=== PATIENT | female | born 1960 | race Caucasian/White ===

== ENCOUNTER 2021-05-19 21:04 | Emergency (ER) | payer MEDICAID, SELFPAY ==
--- NOTE | ~2021-05-19 | CT_ITS ---
EXAMINATION: CT ABDOMEN AND PELVIS WITH CONTRAST CLINICAL INFORMATION: Abdominal pain COMPARISON: None TECHNIQUE: Multidetector volumetric images were obtained from the superior aspect of the liver through the pubic symphysis following administration 85 mL of Omnipaque 350 intravenous contrast. Sagittal and coronal reformatted images were obtained on the technologist's workstation. Oral contrast: No This CT examination was performed using dose optimization techniques as appropriate, variously including the following: *Automated exposure control *Adjustment of mA and/or kV according to patient size (this includes techniques or standardized protocols for targeted exams where dose is matched to indication/reason for exam; i.e. extremities or head) *Use of iterative reconstruction technique DLP: 418 mGy-cm FINDINGS: LUNG BASES: The visualized lung bases are unremarkable. LIVER, GALLBLADDER, AND BILIARY TREE: The liver is normal in size, shape, and attenuation. There are multiple hypodense liver lesions likely simple cysts. No intrahepatic ductal dilatation seen.. The gallbladder has been surgically removed. The CBD is slightly prominent an expected findings post cholecystectomy. It measures 9 mm PANCREAS: Unremarkable. SPLEEN: Unremarkable. ADRENAL GLANDS: Unremarkable. KIDNEYS AND URETERS: The kidneys are normal in size, shape, and attenuation. No hydronephrosis, hydroureter, or calculi seen. No perinephric stranding. BLADDER: Unremarkable. GASTROINTESTINAL TRACT: There is scattered moderate stool and gas seen throughout the colon without significant distention. There are fluid-filled small bowel loops in the pelvis without distention. Appendix is not visualized. There is no inflammatory process in the abdomen. ABDOMINAL WALL: No significant hernia is appreciated. LYMPH NODES: Normal. VASCULAR: Unremarkable. PELVIC VISCERA: There is no free air or free fluid. The uterus is retroverted. OSSEOUS STRUCTURES: There is endplate sclerosis L2-L3 disc level. No lytic or sclerotic process seen. CT/CT abdomen pelvis w con IMPRESSION: Nonspecific fluid-filled distal small bowel loops. Moderate constipation without signs of obstruction. Appendix is not seen. Gallbladder has been surgically removed with mild prominence of common bile duct and expected findings. Multiple liver cysts. No acute intra-abdominal process seen. Fleischner guidelines were followed.
[2021-05-19 21:12] VITALS: BP 132/79; PULSE 95; O2SAT 100
[2021-05-19 21:14] VITALS: BP 133/72; PULSE 105; RESP 18; TEMP 37.3; O2SAT 100; BMI 28.3
--- NOTE | 2021-05-19 21:25 | ED.ABDPAIN ---
HPI - Abdominal Pain General Chief Complaint: Abdominal Pain Stated Complaint: n/v/abd pain Time Seen by Provider: 05/19/21 21:23 History of Present Illness HPI narrative: Patient is 60 years old presents today with having abdominal pain. Abrupt in onset epigastric area similar to previous bouts of gastric ulcers. Positive. History of ovarian surgery. The abdominal pain is extreme. Patient cannot describe the pain. She is not vaccinated for COVID. She denies any coughing congestion upper respiratory symptoms. No changes in smell or taste. No changes in bowel movement. No diarrhea. No bloody stool. Patient from home. Related Data Previous Rx's Medication Instructions Recorded pantoprazole 40 mg tablet,delayed 40 mg PO DAILY #14 tab 05/19/21 release (Protonix) Allergies Allergy/AdvReac Type Severity Reaction Status Date / Time aspirin [ASA] Allergy Intermediate FRY Unverified 01/18/20 17:06 STOMACH ibuprofen Allergy Unknown Verified 02/24/18 00:00 Review of Systems Review of Systems No coughing or congestion or upper respiratory symptoms no diaphoresis positive abdominal pain Yes all other systems are reviewed and are negative Physical Exam Vital Signs: Vital Signs: Last Vital Signs Temp 99.2 F 05/19/21 21:14 Pulse 96 05/19/21 22:00 Resp 16 05/19/21 22:00 BP 119/68 05/19/21 22:00 Pulse Ox 94 05/19/21 22:00 BMI result Body Mass Index 28.3 Appearance: Alert. Oriented X3. No acute distress. Eyes: Pupils equal, round and reactive to light. ENT: Pharynx normal. Neck: Normal inspection. Neck supple. No lymph nodes noted. No crepitus CVS: Normal heart rate and rhythm. Pulses normal. Normal S1 and S2 Respiratory: No respiratory distress. Breath sounds normal. No Wheezing. No rales Abdomen: Soft and nontender. No rigidity. No distention. good BS x4 Skin: Skin warm and dry. Normal skin color. Normal skin turgor. Extremities: No lower extremity edema. Neurovascular intact to all extremities. No Lacerations. No Rash Neuro: Oriented X 3. No motor deficit. No sensory deficit. Moving all extermities. No slurred speech MDM - Abdominal Pain MDM Narrative Medical decision making narrative: CT scan of the abdomen grossly negative for any acute evidence of obstruction, abscess, perforation. Patient given Dilaudid for pain. Question colitis. Patient's LFTs are normal lipase normal no evidence for liver or pancreatic disease. She is in stable condition. Patient had increased respiratory rate not vaccinated for COVID. A COVID test was done was positive. Patient told to stay home isolation until all symptoms has resolved. She is in stable condition. Her O2 sat on room air was normal( greater than 95% on ra Medical Records Attestation: I reviewed the patient's medical records. Lab Data Attestation: I reviewed the patient's lab results. Result diagrams: 05/19/21 21:35 05/19/21 21:35 Labs: Lab Results 05/19/21 05/19/21 05/19/21 Range/Units 21:35 21:35 21:35 WBC 5.6 (4.8-10.8) X10*3/uL RBC 4.46 (4.20-5.50) X10*6/uL Hgb 12.9 (12.0-16.0) g/dl Hct 38.3 (37.0-47.0) % MCV 85.9 (80.0-98.0) fL MCH 28.9 (27.0-33.0) pg MCHC 33.7 (31.0-35.0) g/dl RDW 12.3 (11.0-16.0) % Plt Count 215 (160-400) X10*3/uL MPV 9.5 (9.4-12.3) fL Immature Gran % (Auto) 0.5 H (0.0-0.4) % Neut % (Auto) 85.5 H (45-73) % Lymph % (Auto) 2.7 L (20-40) % [place] % (Auto) 10.4 (2-11) % Eos % (Auto) 0.7 (0-4) % Baso % (Auto) 0.2 (0-2) % Lymph # (Auto) 0.2 L (1.2-4.9) X10*3/uL [place] # (Auto) 0.6 (0.1-1.2) X10*3/uL Eos # (Auto) 0.0 (0.0-0.4) X10*3/uL Baso # (Auto) 0.0 (0.0-0.2) X10*3/uL Abs Immat Gran (auto) 0.03 (0.00-0.03) X10*3/uL Absolute Neuts (auto) 4.8 (2.0-8.3) x10*3/uL Absolute Nucleated RBC 0.000 (0.0-0.012) X10*3/uL Nucleated RBC % (auto) 0.0 (0.0-0.2) /100WBC Sodium 140 (135-145) mmol/L Potassium 4.4 (3.3-5.1) mmol/L Chloride 106 (96-108) mmol/L Carbon Dioxide 21 L (22-29) mmol/L Anion Gap 17 (12-20) BUN 7 L (9-16) mg/dL Creatinine 0.82 (0.5-1.4) mg/dL Estim Creat Clear Calc 61.7 Estimated GFR > 60 Random Glucose 88 (60-115) mg/dL Calcium 9.2 (8.4-10.2) mg/dL Total Bilirubin 0.5 (0.0-1.0) mg/dL AST 18 (5-31) U/L ALT 11 (0-31) U/L Alkaline Phosphatase 52 (39-117) U/L Total Protein 7.0 (6.5-8.0) g/dL Albumin 4.1 (3.5-5.0) g/dL Lipase 57 (8-78) U/L Influenza Type A (PCR) NEGATIVE (Negative) Influenza Type B (PCR) NEGATIVE (Negative) RSV RNA Qual (PCR) NEGATIVE (Negative) SARS-CoV-2 RNA (RT-PCR) POSITIVE A (Negative) Discharge Plan Discharge Clinical Impression: COVID-19, Gastritis Patient Disposition: Home, Self-Care Instructions: Covid-19 Viral Syndrome and Novel Coronavirus (ED) Hey/Ath, Gastritis (ED), COVID-19 (Coronavirus Disease 2019) (ED) Prescriptions: New pantoprazole [Protonix] 40 mg tablet,delayed release (DR/EC) 40 mg PO DAILY Qty: 14 RF: 0 Referrals: Hyacinth Dudley MD [Primary Care Provider] - 2 days (Home isolation into all symptom has resolved for least 2 days. Please stay home isolation for at least 1 week.) Print Language: Malay [facility] Past Medical History Attestation statement: The following information was validated with the patient. Social History Social History Advance Directives: No Advance Directives Information Provided: No Patient : Yes
[2021-05-19 21:42] LABS: MANUAL DIFF FLAG NO
[2021-05-19 21:43] LABS: Basophils Percent Auto 0.2 % (0-2); Eosinophils Percent Auto 0.7 % (0-4); Hematocrit 38.3 % (37.0-47.0); Hemoglobin 12.9 g/dl (12.0-16.0); Imm Gran Abs Auto 0.03 X10*3/uL (0.00-0.03); Imm Gran Pct Auto 0.5 % (0.0-0.4); Lymphocytes Absolute Auto 0.2 X10*3/uL (1.2-4.9); Lymphocytes Percent Auto 2.7 % (20-40); Mean Corpuscular HGB Conc 33.7 g/dl (31.0-35.0); Mean Corpuscular Hemoglobin 28.9 pg (27.0-33.0); Mean Corpuscular Volume 85.9 fL (80.0-98.0); Mean Platelet Volume 9.5 fL (9.4-12.3); Monocytes Absolute Auto 0.6 X10*3/uL (0.1-1.2); Monocytes Percent Auto 10.4 % (2-11); Neutrophils Absolute Auto 4.8 x10*3/uL (2.0-8.3); Neutrophils Percent Auto 85.5 % (45-73); Platelet Count 215 X10*3/uL (160-400); Red Blood Count 4.46 X10*6/uL (4.20-5.50); Red Cell Distribution Width 12.3 % (11.0-16.0); White Blood Count 5.6 X10*3/uL (4.8-10.8)
[2021-05-19 21:54] VITALS: RESP 20
[2021-05-19] MEDS: Ondansetron ODT 4 MG TAB.RAPDIS SUBLINGUAL (21:54)
[2021-05-19] MEDS: HYDROmorphone HCl 1 MG/ML SYRINGE IVPUSH (21:54)
[2021-05-19] MEDS: 0.9 % Sodium Chloride 1,000 ML 999 ML IV (21:54)
[2021-05-19] MEDS: Magnesium Hydrox/Alum Hydrox 30 ML ORAL.SUSP PO (21:55)
[2021-05-19 21:57] VITALS: BP 132/83; PULSE 92; RESP 20; O2SAT 100
[2021-05-19 22:00] VITALS: BP 119/68; PULSE 96; RESP 16; O2SAT 94
[2021-05-19 22:02] LABS: Alanine Aminotransferase 11 U/L (0-31); Albumin Level 4.1 g/dL (3.5-5.0); Alkaline Phosphatase 52 U/L (39-117); Anion Gap 17 (12-20); Aspartate Amino Transferase 18 U/L (5-31); Bilirubin Total 0.5 mg/dL (0.0-1.0); Blood Urea Nitrogen 7 mg/dL (9-16); Calcium 9.2 mg/dL (8.4-10.2); Carbon Dioxide 21 mmol/L (22-29); Chloride 106 mmol/L (96-108); Creatinine Clr Calc Pharmacy 61.7; Estimated Glomerular Filt Rate > 60; Glucose Random 88 mg/dL (60-115); Lipase 57 U/L (8-78); Potassium 4.4 mmol/L (3.3-5.1); Sodium 140 mmol/L (135-145)
[2021-05-19 22:19] LABS: Influenza A PCR NEGATIVE (Negative); Influenza B PCR NEGATIVE (Negative); Resp Syncy Virus RNA Qual PCR NEGATIVE (Negative); SARS COV2 PCR INHOUSE POSITIVE (Negative)
[2021-05-19] MEDS: iohexoL 350 MG/ML 100 ML INFUS..BTL IV (22:50)
[2021-05-19 23:57] VITALS: BP 104/56; PULSE 83; RESP 14; O2SAT 100
[2021-05-20] VITALS: BP 102/65; PULSE 82; RESP 14; O2SAT 97
[2021-05-20 00:10] VITALS: BP 102/65; PULSE 82; RESP 14
--- NOTE | 2021-05-20 00:17 | PC.NURSE ---
pt ride home call [phone]
[2021-05-20 00:28] VITALS: BP 114/63; PULSE 86; RESP 16; O2SAT 99
== END 2021-05-20 00:34 | disposition home or self-care (01) ==
PROVIDERS: Emergency Provider Emergency Medicine Emergency Medical Services; PCP Internal Medicine
DX: U07.1 COVID-19 (principal); K29.70 Gastritis, unspecified, without bleeding; R10.13 Epigastric pain
CPT/HCPCS: 0241U; 36415; 74177; 80053; 83690; 85025; 96361; 96374; 99284; J1170; Q9967

== ENCOUNTER 2022-01-08 03:05 | Emergency (ER) | payer MEDICAID, SELFPAY ==
[2022-01-08 03:11] VITALS: BP 120/84; BP 140/90; PULSE 64; RESP 16; TEMP 36.9; O2SAT 97; O2SAT 98; BMI 21.2
--- NOTE | 2022-01-08 04:19 | ED_ITS ---
HPI - Alcohol General Chief Complaint: ETOH/Substance Use Stated Complaint: ETOH/CRISIS Time Seen by Provider: 01/08/22 04:19 Source: patient Mode of arrival: EMS Limitations: no limitations History of Present Illness HPI narrative: Patient took 2 beer and 2 500 mg Tylenol tablet and called ambulance as she wants attention from her son and her daughter would not care about her patient denies any suicidal ideation or significant depression patient does have a counselor she regular talks to Related Data Previous Rx's Medication Instructions Recorded pantoprazole 40 mg tablet,delayed 40 mg PO DAILY #14 tabs 05/19/21 release (Protonix) Allergies Allergy/AdvReac Type Severity Reaction Status Date / Time aspirin [ASA] Allergy Intermediate FRY Unverified 01/18/20 17:06 STOMACH ibuprofen Allergy Unknown Verified 02/24/18 00:00 Review of Systems Review of Systems: Yes all other systems are reviewed and are negative [facility] Social History Social History Advance Directives: No Advance Directives Information Provided: Yes Physical Exam ED Vital Signs: Vital Signs - 24 hr 01/08/22 03:11 01/08/22 05:10 Temperature 98.4 F 97.8 F Pulse Rate 64 74 Respiratory Rate 16 16 Blood Pressure 140/90 H 96/58 L Pulse Oximetry 98 98 Oxygen Delivery Method Room Air Room Air BMI result Body Mass Index 21.2 Appearance: Alert. Oriented X3. No acute distress. Eyes: PERRLA, No Nystagmus ENT: Pharynx normal. Oral Mucosa moist Neck: Normal inspection. Neck supple. CVS: Normal heart rate and rhythm. Pulses normal. Respiratory: No respiratory distress. Equal air entry bilateral, no wheezing/rales/rhonchi Abdomen: Soft and nontender. Bowel sounds are present, no mass palpable, no CVA tenderness Skin: Skin warm and dry. Normal skin color. Normal skin turgor. Extremities: No lower extremity edema. No calf tenderness psych: Normal mentation mood stable no SI/HI no delusions or hallucinations Neuro: Oriented X 3. No motor deficit. No sensory deficit.No cerebellar signs , cranial nerves II-XII intact MDM - Alcohol MDM Narrative Medical decision making narrative: Patient with attention seeking behavior, medically cleared will discharge patient home patient denies any suicidal ideation Discharge Plan Discharge Clinical Impression: Alcoholic intoxication, Mood disorder Patient Disposition: Home, Self-Care Instructions: Mood Disorders (ED), Abuse of Alcohol (ED) Additional Instructions: Do not drink alcohol or take medication without prescription Follow-up with your PCP/therapy Prescriptions: No Action pantoprazole [Protonix] 40 mg tablet,delayed release (DR/EC) 40 mg PO DAILY Qty: 14 0RF
[2022-01-08 05:10] VITALS: BP 96/58; PULSE 74; RESP 16; TEMP 36.6; O2SAT 98
[2022-01-08] MEDS: hydrOXYzine HCL 25 MG TABLET PO (05:35)
== END 2022-01-08 06:07 | disposition home or self-care (01) ==
PROVIDERS: Emergency Provider Internal Medicine
DX: F10.129 Alcohol abuse with intoxication, unspecified (principal); F39 Unspecified mood [affective] disorder; Y90.9 Presence of alcohol in blood, level not specified; Z79.899 Other long term (current) drug therapy
CPT/HCPCS: 99283; 99284

== ENCOUNTER → 2022-09-15 11:05 | Outpatient (BNVA) | payer MEDICAID, SELFPAY | PROVIDERS: PCP Internal Medicine; Referring Provider Internal Medicine; Visit Provider Internal Medicine | DX: I45.10 Unspecified right bundle-branch block (principal); R55 Syncope and collapse | CPT/HCPCS: 93005; 99202 ==

== ENCOUNTER → 2022-10-16 11:09 | Outpatient (REF) | payer MEDICAID, SELFPAY ==
--- NOTE | 2022-10-16 11:15 | CA_ITS ---
Transthoracic Echocardiogram Patient (Last, First, Middle): Geno Stone, Gender: Female Date of : 1960 Age: 61 Procedure Date: 10/16/2022 Procedure Type: Transthoracic Echocardiogram Location: OP Height: 154.94 cm Weight: 62.6 kg BSA: 1.61 m2 Heart Rate: bpm BP: 112 / 70 mmHg Pulper Operator: TO Referring MD: Davidson Mccormick MD Financial Associate: Kennedy Tran MD Symptoms: R55 - Syncope and collapse Study Quality: Adequate ECG Rhythm: Sinus Conclusions: - Normal study Findings Left Ventricle Normal left ventricular size, thickness, and systolic function. The visually estimated ejection fraction is between 65-70%. Spectral Doppler is indicative of a normal filling pattern. Peak GLS is -23%, normal. Right Ventricle Normal right ventricular cavity size and systolic function. Atria Both atria are normal in size. There is no evidence of interatrial shunt. Aortic Valve Normal aortic valve structure and function. There is no aortic valve stenosis. There is no aortic valve regurgitation. Mitral Valve Normal mitral valve structure and function. There is trace mitral valve regurgitation. There is no mitral valve stenosis. Pulmonic Valve The pulmonic valve is likely normal. Tricuspid Valve Normal tricuspid valve structure. There is trace tricuspid valve regurgitation. The right ventricular systolic pressure is normal. The right ventricular systolic pressure is 32 mmHg. Normal right atrial pressure. There is no evidence of pulmonary hypertension. Great Vessels All visible segments of the aorta are normal in size. The pulmonary artery was not well visualized. Venous The inferior vena cava is normal in size and collapses greater than 50% with inspiration. Pericardium/Pleural There is no evidence of pericardial effusion. Prior Study Comparison No prior study available for comparison. Measurements 2D Linear Measurements IVSd: 1.03 0.6-0.9/0.6-1.0 cm LVIDd: 4.50 3.9-5.3/4.2-5.9 cm LVIDd Index: 2.80 2.4-3.2/2.2-3.1 cm/m2 LVIDs: 2.85 2.0-3.6 cm LVPWd: 0.77 0.7-1.1 cm LA Diam: 3.20 2.7-3.8/3.0-4.0 cm LAIDs Index: 1.99 1.5-2.3 cm/m2 LV Mass: 164.78 67-162/88-224 g LV Mass Index: 102.35 43-95/49-115 g/m2 LVOT Diam: 2.10 3.0+(-)1.3 cm 2D Systolic Function EF 4C: 67.90 >55% EF 2C: 67.20 >55% EF BiP: 65.70 >55% Mitral Valve MV Pk E: 0.82 MV PK A: 0.74 MV Decel Time: 251.00 E/A: 1.10 E'Lateral: 13.10 E'Medial: 9.79 E/E' Med: 8.40 E/E' Lat: 6.20 PHT: 73.00 MVA PHT: 3.01 Decel Wirt: 3.26 Aortic Valve AoV Pk Broderick: 1.48 AoV Mn Broderick: 1.03 AoV VTI: 0.32 AoV Pk Grad: 9.00 Aov Mn Grad: 5.00 RADHA Cont.VTI: 2.08 LVOT LVOT Pk Broderick: 0.78 LVOT Mn Broderick: 0.57 LVOT VTI: 0.20 LVOT Pk Grad: 2.00 LVOT Mn Grad: 1.00 LVOT Diam: 2.10 LVOT Area: 3.46 Diastolic Function MV Pk E: 0.82 MV Pk A: 0.74 E/A: 1.10 E'Medial: 9.79 E/E' Med: 8.40 E' Laterial: 13.10 E/E' Lat: 6.20 Right Ventricle TAPSE (mm): 28.70 TVS' Broderick: 12.70 Tricuspid Valve TR Pk Broderick: 2.69 TR Pk Grad: 29.00 RA Press: 3.00 RVSP: 32.00 Great Vessels Aorta Sinus of Valsalva: 3.16 2.0-3.[address] Ridge: 2.55 1.7-3.4 cm Ao Asc: 3.20 2.1-3.4 cm Updated in Other Vendor System with Status of Final Kennedy Tran MD electronically signed on 10/17/2022 1:45:05 PM with status of Final
--- NOTE | 2022-10-16 11:15 | HM_ITS ---
Cardiac event monitor Indication: Syncope and collapse Technique: Patient was hooked up to cardiac event monitor on 10/16/2022 for total of 30 days with compliance rate of 62% Findings: Baseline was normal sinus rhythm with minimal heart rate 50 beats per minute and maximum heart rate 138 beats per minute. There were no significant pauses or AV block noted. Rare PVCs noted. Patient marked events 6 times on monitor but without any current pounding symptoms correlated with sinus rhythm. Conclusion: 1. Baseline normal sinus rhythm without significant pauses 2. No significant arrhythmias noted 3. Patient reported events without corresponding symptoms correlating with sinus rhythm MTDD
== END ==
LOC: HO.CARD 11:09
PROVIDERS: PCP Internal Medicine; Visit Provider Internal Medicine
DX: I45.10 Unspecified right bundle-branch block (principal); R55 Syncope and collapse
CPT/HCPCS: 93270; 93306; 93356

== ENCOUNTER → 2022-10-16 11:15 | Outpatient (BNV) | payer MEDICAID, SELFPAY | PROVIDERS: PCP Internal Medicine; Visit Provider Internal Medicine Cardiovascular Disease | DX: R55 Syncope and collapse (principal) | CPT/HCPCS: 93272; 93306 ==

== ENCOUNTER 2022-12-29 14:19 | Outpatient (AMB) | payer MEDICAID, SELFPAY ==
[2022-12-29 14:29] VITALS: BP 112/74; PULSE 79; BMI 25.6
--- NOTE | 2022-12-29 14:29 | A.OFFVIS_ITS ---
Intake Vital Signs 12/29/22 14:29 Height 5 ft 2 in Weight 139 lb 12.369 oz BMI 25.6 BP 112/74 Blood Pressure Location Lt brachial Position Sitting Pulse 79 Pulse Source Pulse Oximeter Intake Visit Reasons: follow up after testing Intake Note: Follow up after testing. Md Physician Dermatologist Required: No Accompanied by: Self / Same As Patient Allergies aspirin [ASA] Allergy (Intermediate, Verified 12/29/22 14:30) FRY STOMACH ibuprofen Allergy (Unknown, Verified 12/29/22 14:30) unknown HPI follow up after testing HPI Details Gricelda is a 62-year-old female with no prior known cardiac history who recently had a syncopal event. Her EKG showed a right bundle branch block and she was referred to Cardiology for evaluation. She recently underwent an echocardiogram and cardiac event monitor and now presents for follow-up. Today she reports she has been doing well with no recurrent syncopal events. She describes her event to me: She was in a restaurant waiting for a food order and she became hot, vision was blurry and she had a brief syncopal event. She was feeling weak afterwards but felt better when she was brought out side in the fresh air. She denies having episodes like this in the past. No chest discomfort at rest or with activity. No shortness of breath, palpitations, presyncope, PND, orthopnea or edema. She is not on any routine medications. She does report issues with anxiety at times. [facility] Surgical History No pertinent past surgical history Family History Mother Heart problem Father Emphysema lung Social History Alcohol intake: current Alcohol intake frequency: a few times a month Patient Tobacco Use Status: Former Tobacco user Review of Systems Const Details: Reports anxiety issues, heart palpitations All systems reviewed & are unremarkable except as noted in HPI and below Denies weakness ENT Denies dizziness Card Denies chest pain, Denies chest pain with activity, Denies syncope, Denies rapid heart rate, Denies pedal edema, Denies edema, Denies leg edema, Denies lightheadedness, Denies palpitations, Denies dyspnea, Denies dyspnea on exertion and Denies orthopnea Resp Denies cough, Denies dyspnea and Denies dyspnea on exertion GI Denies hematochezia and Denies change in stool character Musc Denies abnormal gait, Denies muscle cramps, Denies muscle weakness, Denies numbness, Denies radiating pain into limb and Denies tingling Neuro Denies abnormal gait, Denies dizziness, Denies syncope, Denies numbness, Denies tingling and Denies weakness Endo Denies palpitations Physical Exam Vital Signs: Last Vital Signs Pulse 79 12/29/22 14:29 BP 112/74 12/29/22 14:29 BMI result Body Mass Index 25.6 Const General: cooperative, healthy appearing, comfortable and no acute distress Orientation/consciousness: patient oriented x3 Neck Neck: Yes normal visual inspection Resp Effort & Inspection: normal respiratory effort Auscultation: clear to auscultation bilaterally, no crackles, no rales, no rhonchi and no wheezes Cardio Jugular venous distension: no JVD Rate: regular rate Rhythm: regular rhythm Heart sounds: S1 normal heart sound present, S2 normal heart sound present, no murmurs and no rubs Neuro General: patient oriented x3 Extrem General: Yes normal to inspection Psych Appearance: grossly normal Mental Status: mental status grossly normal Speech and movement: Normal speech and movement present Assessment & Plan Assessment & Plan (1) Syncope: Code(s): R55 - Syncope and collapse Plan: Syncopal event which when describes sounds like vasovagal syncope. No recurrent episodes since then. No prior syncope in the past. EKG done 09/15/2022 shows sinus rhythm with right bundle branch block. Echocardiogram done 10/16/2022 shows normal study, EF 65-70%. A cardiac event monitor was done on 10/16/2022 for 30 days showing sinus rhythm with heart rate range 50 to 138, no significant pauses or AV blocks noted, rare PVCs. Symptoms of pounding heart correlated with normal sinus rhythm. Test results reviewed with her. No further cardiac testing needed at this time. Instructed on good hydration, recognizes symptoms of syncope and then sitting/laying down. ED care if needed for recurrent symptoms. Cardiology follow-up 6 months, sooner if needed (2) RBBB: Code(s): I45.10 - Unspecified right bundle-branch block Plan: Finding a right bundle branch block on EKG. No anginal sounding symptoms. Echocardiogram normal. Coding Level of Care Code Est Pt Level 3 (27429) Diagnoses Syncope R55 RBBB I45.10 Time Spent (min) 24 Comment Chart review, documentation, interview, assessment
== END 2022-12-29 14:59 | disposition home or self-care (01) ==
PROVIDERS: PCP Internal Medicine; Referring Provider Internal Medicine; Visit Provider Nurse Practitioner Family
DX: R55 Syncope and collapse (principal); I45.10 Unspecified right bundle-branch block
CPT/HCPCS: 99213

== ENCOUNTER → 2022-12-29 14:19 | Outpatient (BNVA) | payer MEDICAID, SELFPAY | PROVIDERS: PCP Internal Medicine; Referring Provider Internal Medicine; Visit Provider Nurse Practitioner Family | DX: R55 Syncope and collapse (principal); I45.10 Unspecified right bundle-branch block | CPT/HCPCS: 99212; 99213 ==

== ENCOUNTER 2023-02-15 16:46 | Outpatient (REF) | payer MEDICAID, SELFPAY ==
--- NOTE | ~2023-02-15 | XR_ITS ---
EXAMINATION: XR LUMBOSACRAL SPINE CLINICAL INFORMATION: Right-sided lower back pain radiating to right lower leg. COMPARISON: None available. TECHNIQUE: Three views of the lumbosacral spine. FINDINGS: There is mild levoscoliosis. Lumbar lordosis is maintained. Loss of the L2-L3, L4-L5 and L5-S1 disc heights is seen. No visible acute fracture or dislocation seen. There is mild endplate sclerosis at the L2-L3 disc level. No aggressive lytic or sclerotic process seen. SI joints are symmetrical. The soft tissues are normal. XR/XR lumbar spine 2-3V IMPRESSION: Mild degenerative disc changes at the L2-L3, L4-L5 and L5-S1 disc levels. No visible acute fracture, dislocation or lytic process seen. Mild levoscoliosis. Recommend MRI to evaluate neural foraminal narrowing and noted impingement on the right side secondary to scoliosis.
== END 2023-02-15 16:47 | disposition home or self-care (01) ==
LOC: HO.XRAY 16:46
PROVIDERS: PCP Internal Medicine; Visit Provider Internal Medicine
DX: M54.50 Low back pain, unspecified (principal); M79.604 Pain in right leg
CPT/HCPCS: 72100

== ENCOUNTER 2023-03-15 21:38 | Emergency (ER) | payer MEDICAID, SELFPAY ==
--- NOTE | ~2023-03-15 | XR_ITS ---
EXAMINATION: XR CHEST CLINICAL INFORMATION: Shortness of breath COMPARISON: 07/06/2018 TECHNIQUE: 2 views of the chest were obtained. FINDINGS: No significant abnormality is noted involving the heart, lungs, mediastinum, bony thorax or soft tissues. Degenerative changes are present in the spine. Surgical clips are seen in the gallbladder fossa. XR/XR chest 2V IMPRESSION: No acute intrathoracic disease.
--- NOTE | 2023-03-15 21:41 | ECG_ITS ---
Test Reason : chest pain Blood Pressure : / mmHG Vent. Rate : 086 BPM Atrial Rate : 086 BPM P-R Int : 156 ms QRS Dur : 126 ms QT Int : 402 ms P-R-T Axes : 056 -06 042 degrees QTc Int : 481 ms Normal sinus rhythm Right bundle branch block Abnormal ECG When compared with ECG of 30-JUN-2018 09:00, Right bundle branch block is now Present Referred By: Generic ED Physician Electronically Signed By:PEE JACKSON MD
[2023-03-15 21:42] VITALS: BP 115/73; PULSE 92; RESP 18; TEMP 36.6; O2SAT 99; BMI 28.0
[2023-03-15 22:19] LABS: MANUAL DIFF FLAG NO
[2023-03-15 22:20] LABS: Basophils Percent Auto 0.3 % (0-2); Eosinophils Absolute Auto 0.6 X10*3/uL (0.0-0.4); Eosinophils Percent Auto 6.7 % (0-4); Hemoglobin 13.4 g/dl (12.0-16.0); Imm Gran Abs Auto 0.01 X10*3/uL (0.00-0.03); Imm Gran Pct Auto 0.1 % (0.0-0.4); Lymphocytes Absolute Auto 2.5 X10*3/uL (1.2-4.9); Lymphocytes Percent Auto 28.2 % (20-40); Mean Corpuscular HGB Conc 33.5 g/dl (31.0-35.0); Mean Corpuscular Hemoglobin 29.9 pg (27.0-33.0); Mean Corpuscular Volume 89.3 fL (80.0-98.0); Mean Platelet Volume 9.3 fL (9.4-12.3); Monocytes Absolute Auto 0.8 X10*3/uL (0.1-1.2); Monocytes Percent Auto 9.7 % (2-11); Neutrophils Absolute Auto 4.8 x10*3/uL (2.0-8.3); Platelet Count 308 X10*3/uL (160-400); Red Blood Count 4.48 X10*6/uL (4.20-5.50); Red Cell Distribution Width 12.3 % (11.0-16.0); White Blood Count 8.7 X10*3/uL (4.8-10.8)
[2023-03-15 22:33] LABS: Anion Gap 13 (12-20); Blood Urea Nitrogen 14 mg/dL (9-16); Calcium 9.2 mg/dL (8.4-10.2); Carbon Dioxide 26 mmol/L (22-29); Chloride 107 mmol/L (96-108); Creatinine Clr Calc Pharmacy 61.1; Estimated Glomerular Filt Rate > 60; Glucose Random 94 mg/dL (60-115); Potassium 3.7 mmol/L (3.3-5.1); Sodium 142 mmol/L (135-145)
[2023-03-15 22:35] VITALS: BP 118/78; PULSE 73; RESP 12; O2SAT 99
[2023-03-15 22:38] LABS: COVID-19 Test Negative (Negative); IDNOW Serial# BCCEAD1C
[2023-03-15 22:39] LABS: IDNOW Serial# 08D9AD1C; Influenza A Negative (Negative); Influenza B2 Negative (Negative)
[2023-03-15 22:43] LABS: Troponin-I High Sensitivity < 2.7 ng/L (<3.5-17.0)
[2023-03-15] MEDS: Ketorolac Tromethamine 60 MG/2 ML VIAL IM (22:50)
--- NOTE | 2023-03-15 23:55 | ED_ITS ---
HPI - Chest Pain General Chief Complaint: Chest Pain Stated Complaint: chest pain, SOB Time Seen by Provider: 03/15/23 22:25 Source: patient Mode of arrival: ambulatory Limitations: no limitations History of Present Illness HPI narrative: Patient comes to the emergency room complaining of right and left-sided chest pain for about 2 weeks. Patient states that approximately 2 weeks ago, patient had a mechanical fall, landed on her chest. Since then, patient has been having localized pain. Patient denies any difficulty breathing, but states it hurts to breathe. Patient denies hitting her head or losing consciousness, patient denies being on blood thinners. Related Data Previous Rx's Medication Instructions Recorded ketorolac 10 mg tablet 10 mg PO .B.i.d. PRN pain #7 tabs 03/16/23 Allergies Allergy/AdvReac Type Severity Reaction Status Date / Time aspirin [ASA] Allergy Intermediate FRY Verified 12/29/22 14:30 STOMACH ibuprofen Allergy Unknown unknown Verified 12/29/22 14:30 Review of Systems 2 Review of Systems: Constitutional : No Weight loss, No Fever, No Chills, No Night Sweats, No Fatigue, No Malaise ENT/Mouth : No Hearing loss, No Ear Pain, No Nasal Congestion, No Sinus Pain, No Hoarseness, No sore throat, No Rhinorrhea, No Swallowing Difficulty Eyes: No Eye Pain, No Swelling, No Redness, No Foreign Body, No Discharge, No Vision Changes Cardiovascular : Complaining of continues chest pain, worse with sleeping on the left side or rolling in bed, No SOB, No Dyspnea on Exertion, No Orthopnea, No Edema, No Palpitations Respiratory : No Cough, No Sputum, No Wheezing, No Smoke Exposure, No Dyspnea Gastrointestinal : No Nausea, No Vomiting, No Diarrhea, No Constipation, No abdominal Pain, No Hematochezia, No Melena Genitourinary : no irregular bleeding, No Dysuria, No Urinary Frequency, No Hematuria, No Urinary Incontinence, No Urgency, No Flank Pain, No Urinary Flow Changes, No Hesitancy Musculoskeletal : No joint pain, No Myalgias, No Joint Swelling Skin : No Skin Lesions, No rash Neuro : No Weakness, No Numbness, No Paresthesias, No Loss of Consciousness, No Dizziness, No Headache Psych : No Anxiety/Panic, No Depression, No SI/HI/AH/VH, No Social Issues, Heme/Lymph: No Bruising, No Bleeding,No Lymphadenopathy Endocrine : No Polyuria, No Polydipsia, No Temperature Intolerance [facility] Past Medical History Surgical History No pertinent past surgical history Family History Family History Mother Heart problem Father Emphysema lung Social History Social History Alcohol intake: current Alcohol intake frequency: a few times a month Patient Tobacco Use Status: Former Tobacco user Advance Directives: No Advance Directives Information Provided: No Physical Exam 2 Vital Signs: Vital Signs: Last Vital Signs Temp 97.8 F 03/15/23 21:42 Pulse 73 03/15/23 22:35 Resp 12 03/15/23 22:35 BP 118/78 03/15/23 22:35 Pulse Ox 99 03/15/23 22:35 O2 Del Method Room Air 03/15/23 22:35 BMI result Body Mass Index 28.0 Const: Other: Appearance: Alert. Oriented X3. No acute distress. Eyes: Pupils equal, round and reactive to light. ENT: Pharynx normal. Neck: Normal inspection. Neck supple. No lymph nodes noted. No crepitus CVS: Normal heart rate and rhythm. Pulses normal. Normal S1 and S2. Patient has reproducible chest pain on palpation on the right and left. Respiratory: No respiratory distress. Breath sounds normal. No Wheezing. No rales Abdomen: Soft and nontender. No rigidity. No distention. Skin: Skin warm and dry. Normal skin color. Normal skin turgor. Extremities: No lower extremity edema. No Lacerations. No Rash Neuro: Oriented X 3. No motor deficit. No sensory deficit. Moving all extremities. No slurred speech. CN 2 through 12 grossly intact Psych: calm, cooperative, normal affect Medications Administered Discontinued Medications Generic Name Dose Route Start Last Admin Trade Name Freq PRN Reason Stop Dose Admin Ketorolac Tromethamine 60 mg 03/15/23 22:33 03/15/23 22:50 Ketorolac Tromethamine 60 Mg/2 Ml Vial IM 03/15/23 22:34 60 mg ONCE ONE Administration Medical Decision Making Medical Decision Making MDM Narrative: -my interpretation of chest x-ray: No fracture ribs, no pneumonia -my interpretation of labs: Normal hematology, unremarkable chemistry and troponin is negative -patient's score for Wells criteria for pulmonary embolism is 0 -patient was giving a dose of IM ketorolac, patient states then heard chest feels much better but now her arm is hurting at the injection site Differential Diagnosis Differential Diagnoses: The differential diagnosis associated with the presentation includes (Pneumonia, contusion, rib fracture) Lab Data [facility] Lab Attestation statement: I reviewed the patient's lab results. 03/15/23 22:11 03/15/23 22:11 Labs: Lab Results 03/15/23 Range/Units 22:11 WBC 8.7 (4.8-10.8) X10*3/uL RBC 4.48 (4.20-5.50) X10*6/uL Hgb 13.4 (12.0-16.0) g/dl Hct 40.0 (37.0-47.0) % MCV 89.3 (80.0-98.0) fL MCH 29.9 (27.0-33.0) pg MCHC 33.5 (31.0-35.0) g/dl RDW 12.3 (11.0-16.0) % Plt Count 308 D (160-400) X10*3/uL MPV 9.3 L (9.4-12.3) fL Immature Gran % (Auto) 0.1 (0.0-0.4) % Neut % (Auto) 55.0 (45-73) % Lymph % (Auto) 28.2 (20-40) % [place] % (Auto) 9.7 (2-11) % Eos % (Auto) 6.7 H (0-4) % Baso % (Auto) 0.3 (0-2) % Lymph # (Auto) 2.5 (1.2-4.9) X10*3/uL [place] # (Auto) 0.8 (0.1-1.2) X10*3/uL Eos # (Auto) 0.6 H (0.0-0.4) X10*3/uL Baso # (Auto) 0.0 (0.0-0.2) X10*3/uL Abs Immat Gran (auto) 0.01 (0.00-0.03) X10*3/uL Absolute Neuts (auto) 4.8 (2.0-8.3) x10*3/uL Absolute Nucleated RBC 0.000 (0.0-0.012) X10*3/uL Nucleated RBC % (auto) 0.0 (0.0-0.2) /100WBC Sodium 142 (135-145) mmol/L Potassium 3.7 (3.3-5.1) mmol/L Chloride 107 (96-108) mmol/L Carbon Dioxide 26 (22-29) mmol/L Anion Gap 13 (12-20) BUN 14 (9-16) mg/dL Creatinine 0.77 (0.5-1.4) mg/dL Estim Creat Clear Calc 61.1 Estimated GFR > 60 Random Glucose 94 (60-115) mg/dL Calcium 9.2 (8.4-10.2) mg/dL Troponin I High Sens < 2.7 (<3.5-17.0) ng/L COVID-19 (ALLY) Negative (Negative) COVID-19 Clin Com See Note Influenza Type A (MADAY) Negative (Negative) Influenza Type B (MADAY) Negative (Negative) Influenza A & B Note See Note Independent Interpretation I performed an independent interpretation of an: EKG (My interpretation of EKG: Normal sinus rhythm, heart rate 86, right bundle branch block, not suspicious for STEMI, QTC 481) and Plain X-Ray Radiology Impression Discussion of test interpretation with radiology: I have reviewed the radiologist's reading. Radiologist Impression: FINDINGS: No significant abnormality is noted involving the heart, lungs, mediastinum, bony thorax or soft tissues. Degenerative changes are present in the spine. Surgical clips are seen in the gallbladder fossa. XR/XR chest 2V IMPRESSION: No acute intrathoracic disease. Discharge Plan Discharge Clinical Impression: Costochondritis Patient Disposition: Home, Self-Care Instructions: Costochondritis (ED) Additional Instructions: Please follow-up with your primary care physician tomorrow. If you have any worsening or new symptoms, please return to the emergency room or call 911 Prescriptions: New ketorolac 10 mg tablet 10 mg PO .B.i.d. PRN (Reason: pain) Qty: 7 0RF Rx Instructions: Do not take this medication with NSAIDs/aspirin/ibuprofen Interventions: ED Discharge Assessment Last Done: 03/16/23 00:53 Discharge Date/Time: 03/16/23 00:56
[2023-03-16 00:10] VITALS: PULSE 54
== END 2023-03-16 00:56 | disposition home or self-care (01) ==
PROVIDERS: Emergency Provider Emergency Medicine
DX: M94.0 Chondrocostal junction syndrome [Tietze] (principal); R07.9 Chest pain, unspecified; R06.02 Shortness of breath; Z11.52 Encounter for screening for COVID-19
CPT/HCPCS: 36415; 71046; 80048; 84484; 85025; 87502; 87635; 93005; 96372; 99284; 99285; J1885

== ENCOUNTER 2023-03-24 22:03 | Emergency (ER) | payer MEDICAID, SELFPAY ==
--- NOTE | 2023-03-24 | ECG_ITS ---
Test Reason : chest pain Blood Pressure : / mmHG Vent. Rate : 071 BPM Atrial Rate : 071 BPM P-R Int : 160 ms QRS Dur : 120 ms QT Int : 410 ms P-R-T Axes : 024 -07 040 degrees QTc Int : 445 ms Normal sinus rhythm Right bundle branch block Abnormal ECG When compared with ECG of 15-MAR-2023 21:46, No significant change was found Referred By: Generic ED Physician Electronically Signed By:PEE JACKSON MD
--- NOTE | ~2023-03-24 | CT_ITS ---
EXAMINATION: CT CHEST WITHOUT CONTRAST CLINICAL INFORMATION: Sternal pain after fall COMPARISON: 01/15/2014 TECHNIQUE: Multidetector volumetric CT imaging of the chest was done. Axial MIP volume rendering provided. Sagittal and coronal reformatted images were obtained. This CT examination was performed using dose optimization techniques as appropriate, variously including the following: *Automated exposure control *Adjustment of mA and/or kV according to patient size (this includes techniques or standardized protocols for targeted exams where dose is matched to indication/reason for exam; i.e. extremities or head) *Use of iterative reconstruction technique DLP: 202 mGy-cm FINDINGS: LUNGS: Mild biapical scarring. Subsegmental atelectasis in the bilateral lower lobes. MEDIASTINUM: The visualized thyroid gland is unremarkable. Small hiatal hernia. There are subcentimeter mediastinal lymph nodes within the range of normal variation. Cardiac size is within normal limits; no pericardial effusion. CORONARY ARTERY CALCIFICATION: None visualized on this study. PLEURA: No pneumothorax or pleural effusion. AXILLA: No lymphadenopathy. UPPER ABDOMEN: Several scattered hypoattenuating lesions in the liver favor cysts. OSSEOUS STRUCTURES: There is a nondisplaced fracture of the upper sternal body. Multilevel degenerative changes in the spine. CT/CT chest wo IV con IMPRESSION: Nondisplaced fracture of the upper sternal body.
--- NOTE | ~2023-03-24 | XR_ITS ---
EXAMINATION: XR CHEST CLINICAL INFORMATION: Chest pain COMPARISON: 03/15/2023 TECHNIQUE: Frontal view of the chest was obtained. FINDINGS: The lungs are clear with no focal consolidation. No evidence of pneumothorax, pulmonary edema, or pleural effusions. The cardiomediastinal silhouette is unremarkable. No acute osseous findings. XR/XR chest 1V IMPRESSION: No acute cardiopulmonary findings.
[2023-03-24 22:11] VITALS: BMI 28.3
[2023-03-24 22:18] VITALS: BP 160/86; PULSE 77; RESP 18; TEMP 36.8; O2SAT 98
[2023-03-24 22:21] LABS: MANUAL DIFF FLAG NO
[2023-03-24 22:23] LABS: Basophils Percent Auto 0.5 % (0-2); Eosinophils Percent Auto 11.7 % (0-4); Hematocrit 38.9 % (37.0-47.0); Hemoglobin 13.2 g/dl (12.0-16.0); Imm Gran Abs Auto 0.02 X10*3/uL (0.00-0.03); Imm Gran Pct Auto 0.2 % (0.0-0.4); Lymphocytes Percent Auto 24.3 % (20-40); Mean Corpuscular HGB Conc 33.9 g/dl (31.0-35.0); Mean Corpuscular Hemoglobin 30.2 pg (27.0-33.0); Mean Platelet Volume 9.5 fL (9.4-12.3); Monocytes Absolute Auto 0.7 X10*3/uL (0.1-1.2); Monocytes Percent Auto 8.6 % (2-11); Neutrophils Absolute Auto 4.6 x10*3/uL (2.0-8.3); Neutrophils Percent Auto 54.7 % (45-73); Platelet Count 283 X10*3/uL (160-400); Red Blood Count 4.37 X10*6/uL (4.20-5.50); Red Cell Distribution Width 12.4 % (11.0-16.0); White Blood Count 8.4 X10*3/uL (4.8-10.8)
[2023-03-24 22:37] VITALS: PULSE 69
[2023-03-24 22:38] LABS: Alanine Aminotransferase 9 U/L (0-31); Albumin Level 3.9 g/dL (3.5-5.0); Alkaline Phosphatase 76 U/L (39-117); Anion Gap 9 (12-20); Aspartate Amino Transferase 15 U/L (5-31); Bilirubin Total 0.2 mg/dL (0.0-1.0); Blood Urea Nitrogen 16 mg/dL (9-16); Calcium 9.5 mg/dL (8.4-10.2); Carbon Dioxide 26 mmol/L (22-29); Chloride 109 mmol/L (96-108); Estimated Glomerular Filt Rate > 60; Glucose Random 97 mg/dL (60-115); Potassium 4.2 mmol/L (3.3-5.1); Sodium 140 mmol/L (135-145); Total Protein 6.8 g/dL (6.5-8.0)
[2023-03-24 22:47] LABS: Troponin-I High Sensitivity < 2.7 ng/L (<3.5-17.0)
--- NOTE | 2023-03-24 22:51 | ED_ITS ---
HPI - Chest Pain General Chief Complaint: Chest Pain Stated Complaint: chest pain Time Seen by Provider: 03/24/23 22:51 Source: patient Mode of arrival: ambulatory Limitations: no limitations History of Present Illness HPI narrative: Patient complaining of pain in the sternum on the right side of the chest for last 3 weeks was seen here on 03/15 for the pain which is going on at that time for 2 weeks ago when she had a mechanical fall and landed on her chest patient does have history of fibromyalgia was taking Toradol tablets without much response complaining of cough and pain in the right side of the chest facially when she takes a deep breath or palpate no fever or chills no shortness of breath patient x-ray was negative on 03/15 Related Data Previous Rx's Medication Instructions Recorded ketorolac 10 mg tablet 10 mg PO .B.i.d. PRN pain #7 tabs 03/16/23 benzonatate 200 mg capsule 200 mg PO TID PRN cough #30 caps 03/25/23 diclofenac epolamine 1.3 % 1 patch topical BID #30 ea 03/25/23 transdermal 12 hour patch oxycodone 5 mg tablet 5 mg PO Q6H PRN pain #20 tabs 03/25/23 Allergies Allergy/AdvReac Type Severity Reaction Status Date / Time aspirin [ASA] Allergy Intermediate FRY Verified 03/24/23 22:13 STOMACH ibuprofen Allergy Unknown unknown Verified 03/24/23 22:13 Review of Systems 2 Review of Systems: Yes all other systems are reviewed and are negative PMFSH Past Medical History Surgical History No pertinent past surgical history Family History Family History Mother Heart problem Father Emphysema lung Social History Alcohol intake: current Alcohol intake frequency: a few times a month Patient Tobacco Use Status: Former Tobacco user Smoked in Last 30 Days: No Use of substances other than those prescribed or required for medical reasons: No Advance Directives: No Advance Directives Information Provided: Yes Patient : No Physical Exam 2 Vital Signs: Vital Signs: Last Vital Signs Temp 98.2 F 03/24/23 22:18 Pulse 63 03/25/23 01:36 Resp 15 03/25/23 01:36 BP 125/85 03/25/23 01:36 Pulse Ox 98 03/25/23 01:36 O2 Del Method Room Air 03/25/23 01:36 BMI result Body Mass Index 28.3 Appearance: Alert. Oriented X3. No acute distress. Neck: Normal inspection. Neck supple. CVS: Normal heart rate and rhythm. Pulses normal. Respiratory: No respiratory distress. Equal air entry bilateral, no wheezing/rales/rhonchi tenderness to the right side of the chest on palpation no deformity no crepitus Abdomen: Soft and nontender. Bowel sounds are present, Skin: Skin warm and dry. Normal skin color. Normal skin turgor. Extremities: No lower extremity edema. No calf tenderness Neuro: Oriented X 3. Medications Administered Discontinued Medications Generic Name Dose Route Start Last Admin Trade Name Freq PRN Reason Stop Dose Admin Al Hydroxide/Mg Hydroxide 30 ml 03/25/23 01:51 03/25/23 01:58 Magnesium Hydrox/Alum Hydrox 30 Ml Oral.Susp PO 03/25/23 01:52 30 ml ONCE ONE Administration Ketorolac Tromethamine 60 mg 03/25/23 01:51 03/25/23 01:58 Ketorolac Tromethamine 60 Mg/2 Ml Vial IM 03/25/23 01:52 60 mg ONCE ONE Administration Morphine Sulfate 15 mg 03/24/23 23:00 03/24/23 23:26 Morphine Sulfate Immed Release 15 Mg Tablet PO 03/24/23 23:01 15 mg ONCE ONE Administration Medical Decision Making Medical Decision Making [facility] Narrative: Patient with chronic right-sided chest wall pain for last 3 weeks after the fall to the ground x-rays negative for rib fractures lung sounds are clear is still patient complaining of increased pain and not happy will do CT scan to rule out rib fracture Differential Diagnosis Differential Diagnoses: The differential diagnosis associated with the presentation includes Chest wall pain/fibromyalgia sternal fracture/rib fracture Lab Data [facility] Lab Attestation statement: I reviewed the patient's lab results. 03/24/23 22:17 03/24/23 22:17 Labs: Lab Results 03/24/23 Range/Units 22:17 WBC 8.4 (4.8-10.8) X10*3/uL RBC 4.37 (4.20-5.50) X10*6/uL Hgb 13.2 (12.0-16.0) g/dl Hct 38.9 (37.0-47.0) % MCV 89.0 (80.0-98.0) fL MCH 30.2 (27.0-33.0) pg MCHC 33.9 (31.0-35.0) g/dl RDW 12.4 (11.0-16.0) % Plt Count 283 (160-400) X10*3/uL MPV 9.5 (9.4-12.3) fL Immature Gran % (Auto) 0.2 (0.0-0.4) % Neut % (Auto) 54.7 (45-73) % Lymph % (Auto) 24.3 (20-40) % [place] % (Auto) 8.6 (2-11) % Eos % (Auto) 11.7 H (0-4) % Baso % (Auto) 0.5 (0-2) % Lymph # (Auto) 2.0 (1.2-4.9) X10*3/uL [place] # (Auto) 0.7 (0.1-1.2) X10*3/uL Eos # (Auto) 1.0 H (0.0-0.4) X10*3/uL Baso # (Auto) 0.0 (0.0-0.2) X10*3/uL Abs Immat Gran (auto) 0.02 (0.00-0.03) X10*3/uL Absolute Neuts (auto) 4.6 (2.0-8.3) x10*3/uL Absolute Nucleated RBC 0.000 (0.0-0.012) X10*3/uL Nucleated RBC % (auto) 0.0 (0.0-0.2) /100WBC Sodium 140 (135-145) mmol/L Potassium 4.2 (3.3-5.1) mmol/L Chloride 109 H (96-108) mmol/L Carbon Dioxide 26 (22-29) mmol/L Anion Gap 9 L (12-20) BUN 16 (9-16) mg/dL Creatinine 0.89 (0.5-1.4) mg/dL Estim Creat Clear Calc 53.0 Estimated GFR > 60 Random Glucose 97 (60-115) mg/dL Calcium 9.5 (8.4-10.2) mg/dL Total Bilirubin 0.2 (0.0-1.0) mg/dL AST 15 (5-31) U/L ALT 9 (0-31) U/L Alkaline Phosphatase 76 (39-117) U/L Troponin I High Sens < 2.7 (<3.5-17.0) ng/L Total Protein 6.8 (6.5-8.0) g/dL Albumin 3.9 (3.5-5.0) g/dL Independent Interpretation I performed an independent interpretation of an: EKG and CT Scan Interpretation: Normal sinus rhythm heart rate 71 beats per minute normal interval normal axis no acute ST T wave changes no acute ischemia Radiology Impression Discussion of test interpretation with radiology: I have reviewed the radiologist's reading. Radiologist Impression: CT/CT chest wo IV con IMPRESSION: Nondisplaced fracture of the upper sternal body. Discharge Plan Discharge Clinical Impression: Sternal fracture Patient Disposition: Home, Self-Care Instructions: Rib Fracture (ED) Additional Instructions: There is no fracture of your ribs but you have nondisplaced fracture of the sternum which happened after the fall It will take 6-8 weeks to heal Take Pain medication as prescribed and cough drops to avoid cough No hay fractura de costillas, ismael tiene drea fractura del estern?n sin desplazamiento que ocurri? despu?s de la ca?da. La curaci?n tardar? entre 6 y 8 semanas. [place] los analg?sicos recetados y las pastillas para la tos para evitar la tos. Prescriptions: New oxycodone 5 mg tablet 5 mg PO Q6H PRN (Reason: pain) Qty: 20 0RF Rx Instructions: Partial Fill upon patient request. diclofenac epolamine 1.3 % patch 12 hour 1 patch topical BID Qty: 30 0RF benzonatate 200 mg capsule 200 mg PO TID PRN (Reason: cough) Qty: 30 0RF No Action ketorolac 10 mg tablet 10 mg PO .B.i.d. PRN (Reason: pain) Qty: 7 0RF Rx Instructions: Do not take this medication with NSAIDs/aspirin/ibuprofen Print Language: Barbadian
[2023-03-24] MEDS: Morphine Sulfate Immed Release 15 MG TABLET PO (23:26)
--- NOTE | 2023-03-25 00:04 | PC.NURSE ---
pt reporting 10/10 rib/chest pain when coughing
--- NOTE | 2023-03-25 00:59 | PC.NURSE ---
pt and daughter unhappy with the work up. thinks it was not enough to figure out her chest pain that has resulted from a fall prior to 03/15 where she hit her chest on the ground. this RN educated about the longer/painful recovery of rib injuries
[2023-03-25 01:36] VITALS: BP 125/85; PULSE 63; RESP 15; O2SAT 98
[2023-03-25] MEDS: Ketorolac Tromethamine 60 MG/2 ML VIAL IM (01:58)
[2023-03-25] MEDS: Magnesium Hydrox/Alum Hydrox 30 ML ORAL.SUSP PO (01:58)
[2023-03-25 02:47] VITALS: BP 134/77; PULSE 65; RESP 12; O2SAT 97
== END 2023-03-25 02:59 | disposition home or self-care (01) ==
PROVIDERS: Emergency Provider Internal Medicine
DX: S22.20XA Unspecified fracture of sternum, initial encounter for closed fracture (principal); W19.XXXA Unspecified fall, initial encounter; Y93.9 Activity, unspecified; Y92.9 Unspecified place or not applicable; Y99.9 Unspecified external cause status; R07.9 Chest pain, unspecified
CPT/HCPCS: 36415; 71045; 71250; 80053; 84484; 85025; 93005; 96372; 99284; 99285; J1885

== ENCOUNTER 2023-04-11 05:43 | Emergency (ER) | payer MEDICAID, SELFPAY ==
--- NOTE | ~2023-04-11 | CT_ITS ---
EXAMINATION: CT ABDOMEN AND PELVIS WITH CONTRAST CLINICAL INFORMATION: Abdominal pain COMPARISON: Previous CT of the abdomen and pelvis May 2021 TECHNIQUE: Multidetector volumetric images were obtained from the superior aspect of the liver through the pubic symphysis following administration 85 mL of Omnipaque 350 intravenous contrast. Sagittal and coronal reformatted images were obtained on the technologist's workstation. Oral contrast: Yes This CT examination was performed using dose optimization techniques as appropriate, variously including the following: *Automated exposure control *Adjustment of mA and/or kV according to patient size (this includes techniques or standardized protocols for targeted exams where dose is matched to indication/reason for exam; i.e. extremities or head) *Use of iterative reconstruction technique DLP: 511 mGy-cm FINDINGS: LUNG BASES: The visualized lung bases are unremarkable. LIVER, GALLBLADDER, AND BILIARY TREE: The liver is normal in size, shape, and attenuation. Multiple liver cysts. Largest measures 2 x 3 mm high in the left lobe. No other focal liver lesion. The gallbladder has been removed. There is mild dilatation of the common bile duct measuring 1.3 cm. This tapers smoothly in the distally in the head of the pancreas. This similar to 2021 exam and may be normal postcholecystectomy. PANCREAS: Unremarkable. SPLEEN: Unremarkable. ADRENAL GLANDS: Unremarkable. KIDNEYS AND URETERS: The kidneys are normal in size, shape, and attenuation. Mild bilateral hydronephrosis.Mild dilatation of both proximal ureters. Distal ureters do not appear dilated. No stone seen. BLADDER: Distended bladder. GASTROINTESTINAL TRACT: The small and large bowel are unremarkable. The appendix is unremarkable. ABDOMINAL WALL: No significant hernia is appreciated. LYMPH NODES: Normal. VASCULAR: Unremarkable. PELVIC VISCERA: Unremarkable. OSSEOUS STRUCTURES: Degenerative changes of the spine. CT/CT abdomen pelvis w IV con IMPRESSION: Mild bilateral hydronephrosis and proximal ureteral dilatation. Distal ureters do not appear dilated. This may be due to a well-distended bladder. No stone seen. Liver cysts. Stable mild extrahepatic biliary duct dilatation that is stable probably normal postcholecystectomy. Fleischner guidelines were followed.
[2023-04-11 05:46] VITALS: BP 126/78; PULSE 81; RESP 16; TEMP 36.5; O2SAT 93; BMI 32.3
--- NOTE | 2023-04-11 05:50 | PC.NURSE ---
pt unwilling to answer questions or verify allergies
--- NOTE | 2023-04-11 07:54 | ECG_ITS ---
Test Reason : ABDOMINAL PAIN Blood Pressure : / mmHG Vent. Rate : 077 BPM Atrial Rate : 077 BPM P-R Int : 156 ms QRS Dur : 126 ms QT Int : 402 ms P-R-T Axes : 051 -12 034 degrees QTc Int : 454 ms Normal sinus rhythm Right bundle branch block Abnormal ECG When compared with ECG of 24-MAR-2023 22:08, No significant change was found Referred By: Niesha Friedman Electronically Signed By:KAYLYN BENAVIEDZ
--- NOTE | 2023-04-11 07:57 | ED_ITS ---
HPI - Abdominal Pain General Chief Complaint: Abdominal Pain Stated Complaint: abd pain Time Seen by Provider: 04/11/23 07:34 History of Present Illness HPI narrative: Patient is a 62-year-old female presents today with having abdominal pain. The abdominal pain is over the epigastric area. It does not radiate. There is no fever no chills. There is no chest pain is no diaphoresis. It is associated with a bad migraine. Patient claims this headache been there in the past. It is dull. Frontal. Similar to previous bouts of migraine. Patient has a history of gastritis. Never had any kind abdominal obstructions. Never had any abdominal surgery in the past. There is no pain on urination. She is from home. Related Data Previous Rx's Medication Instructions Recorded ketorolac 10 mg tablet 10 mg PO .B.i.d. PRN pain #7 tabs 03/16/23 benzonatate 200 mg capsule 200 mg PO TID PRN cough #30 caps 03/25/23 codeine 10 mg-guaifenesin 100 mg/5 10 ml PO Q6H PRN cough #237 mL 03/25/23 mL oral liquid diclofenac epolamine 1.3 % 1 patch topical BID #30 ea 03/25/23 transdermal 12 hour patch diclofenac sodium 1 % topical gel 2 g topical QID #100 grams 03/25/23 oxycodone 5 mg tablet 5 mg PO Q6H PRN pain #20 tabs 03/25/23 cephalexin 500 mg capsule 500 mg PO TID 7 days #21 caps 04/11/23 pantoprazole 40 mg tablet,delayed 40 mg PO DAILY #14 tabs 04/11/23 release (Protonix) Allergies Allergy/AdvReac Type Severity Reaction Status Date / Time aspirin [ASA] Allergy Intermediate FRY Verified 03/24/23 22:13 STOMACH ibuprofen Allergy Unknown unknown Verified 03/24/23 22:13 Review of Systems Review of Systems Positive abdominal pain Yes all other systems are reviewed and are negative PMFSH Past Medical History Attestation statement: The following information was validated with the patient. Surgical History No pertinent past surgical history Family History Family History Mother Heart problem Father Emphysema lung Social History Social History Alcohol intake: current Alcohol intake frequency: a few times a month Patient Tobacco Use Status: Former Tobacco user Smoked in Last 30 Days: No Advance Directives: No Advance Directives Information Provided: No Patient : No Physical Exam ED Vital Signs: Vital Signs - 24 hr 04/11/23 05:46 04/11/23 08:25 Temperature 97.7 F Pulse Rate 81 83 Respiratory Rate 16 18 Blood Pressure 126/78 129/78 Pulse Oximetry 93 96 Oxygen Delivery Method Room Air Room Air BMI result Body Mass Index 32.3 Appearance: Alert. Oriented X3. No acute distress. Eyes: Pupils equal, round and reactive to light. ENT: Pharynx normal. Neck: Normal inspection. Neck supple. No lymph nodes noted. No crepitus CVS: Normal heart rate and rhythm. Pulses normal. Normal S1 and S2 Respiratory: No respiratory distress. Breath sounds normal. No Wheezing. No rales Abdomen: Soft and mild epigastric tenderness. No rigidity. No distention. good BS x4 Skin: Skin warm and dry. Normal skin color. Normal skin turgor. Extremities: No lower extremity edema. Neurovascular intact to all extremities. No Lacerations. No Rash Neuro: Oriented X 3. No motor deficit. No sensory deficit. Moving all extermities. No slurred speech Medical Decision Making Medical Decision Making [facility] Narrative: Patient presented with having epigastric pain. The pain is nonspecific had a history of the same also had some headache that was very similar to migraine headache. Patient given a dose of Reglan along with IV fluid with good results. CT scan of the abdomen pelvis showed no acute evidence of obstruction abscess perforation I reviewed radiology's reading. Patient's urine shows a possible urinary tract infection a dose of Rocephin will be given. Will start patient on a 7 day course of Keflex. Will have patient follow-up on an outpatient basis. Zofran for nausea. Differential Diagnosis Differential Diagnoses: The differential diagnosis associated with the presentation includes Obstruction, abscess, perforation, peptic ulcer disease, pancreatitis, biliary issues Admission/Observation Consideration of admission/observation: Escalation of care including admission/observation considered Symptom improving with discharge home Lab Data [facility] Lab Attestation statement: I reviewed the patient's lab results. 04/11/23 08:17 12/10/23 08:17 Labs: Lab Results 04/11/23 04/11/23 Range/Units 08:17 10:40 WBC 6.3 (4.8-10.8) X10*3/uL RBC 4.72 (4.20-5.50) X10*6/uL Hgb 14.0 (12.0-16.0) g/dl Hct 41.4 (37.0-47.0) % MCV 87.7 (80.0-98.0) fL MCH 29.7 (27.0-33.0) pg MCHC 33.8 (31.0-35.0) g/dl RDW 12.3 (11.0-16.0) % Plt Count 185 D (160-400) X10*3/uL MPV 9.9 (9.4-12.3) fL Immature Gran % (Auto) 0.5 H (0.0-0.4) % Neut % (Auto) 79.2 H (45-73) % Lymph % (Auto) 8.6 L (20-40) % [place] % (Auto) 11.5 H (2-11) % Eos % (Auto) 0.0 (0-4) % Baso % (Auto) 0.2 (0-2) % Lymph # (Auto) 0.5 L (1.2-4.9) X10*3/uL [place] # (Auto) 0.7 (0.1-1.2) X10*3/uL Eos # (Auto) 0.0 (0.0-0.4) X10*3/uL Baso # (Auto) 0.0 (0.0-0.2) X10*3/uL Abs Immat Gran (auto) 0.03 (0.00-0.03) X10*3/uL Absolute Neuts (auto) 5.0 (2.0-8.3) x10*3/uL Absolute Nucleated RBC 0.000 (0.0-0.012) X10*3/uL Nucleated RBC % (auto) 0.0 (0.0-0.2) /100WBC Sodium 138 (135-145) mmol/L Potassium 4.2 (3.3-5.1) mmol/L Chloride 102 (96-108) mmol/L Carbon Dioxide 21 L (22-29) mmol/L Anion Gap 19 (12-20) BUN 19 H (9-16) mg/dL Creatinine 0.70 (0.5-1.4) mg/dL Estim Creat Clear Calc 72.3 Estimated GFR > 60 Random Glucose 75 (60-115) mg/dL Calcium 9.2 (8.4-10.2) mg/dL Total Bilirubin 0.3 (0.0-1.0) mg/dL AST 34 H (5-31) U/L ALT 16 (0-31) U/L Alkaline Phosphatase 65 (39-117) U/L Total Protein 7.0 (6.5-8.0) g/dL Albumin 3.9 (3.5-5.0) g/dL Lipase 79 H (8-78) U/L Urine Color Yellow Urine Appearance Clear Urine pH 6.0 (5.0-9.0) Ur Specific [place] >= 1.030 H (1.005-1.025) Urine Protein 30 (1+) H (Neg-Trace) mg/dL Urine Glucose (UA) Negative (Negative) mg/dL Urine Ketones 80 (Negative) mg/dL Urine Blood Small (1+) H (Negative) Urine Nitrite Negative (Negative) Ur Leukocyte Esterase Small (1+) H (Negative) Urine RBC 11-20 H (0-2) /HPF Urine WBC >50 H (0-5) /HPF Ur Squamous Epith Cells 3-5 (0-2) /HPF Urine Bacteria None Seen (None Seen) Hyaline Casts 0-2 (0-2) /LPF Independent Interpretation I performed an independent interpretation of an: EKG (Sinus right bundle-branch block heart rate is 70 QRS QTC within normal limits is no acute ST segment elevation noted.) and CT Scan (No obstruction no abscess no perforation) Radiology Impression Discussion of test interpretation with radiology: I have reviewed the radiologist's reading. Independent Historian Clinical information obtained from an independent historian. History obtained from or confirmed by: Friend External Record Review External record reviewed: Office record Cardiology records reviewed Chronic Conditions Abdominal pain Medications Administered Discontinued Medications Generic Name Dose Route Start Last Admin Trade Name Freq PRN Reason Stop Dose Admin Hydromorphone HCl 0.5 mg 04/11/23 07:54 04/11/23 08:23 Hydromorphone Hcl 0.5 Mg/0.5 Ml Syringe IVPUSH 04/11/23 07:55 0.5 mg ONCE ONE Administration Protocol Sodium Chloride 1,000 mls @ 999 mls/hr 04/11/23 08:00 04/11/23 08:23 Ns IV 04/11/23 09:00 999 mls/hr .Q1H1M KATHRYN Administration Iohexol 85 ml 04/11/23 09:14 04/11/23 09:15 Iohexol 350 Mg/Ml 100 Ml Infus..Btl IV 04/11/23 09:15 85 ml ONCE ONE Administration Metoclopramide HCl 10 mg 04/11/23 07:57 04/11/23 08:23 Metoclopramide Hcl 10 Mg/2 Ml Vial IVPUSH 04/11/23 07:58 10 mg ONCE ONE Administration Discharge Plan Discharge Clinical Impression: RBBB, Abdominal pain Patient Disposition: Home, Self-Care Instructions: Urinary Tract Infection in Women (ED), Abdominal Pain (ED) Prescriptions: New pantoprazole [Protonix] 40 mg tablet,delayed release (DR/EC) 40 mg PO DAILY Qty: 14 0RF cephalexin 500 mg capsule 500 mg PO TID 7 Days Qty: 21 0RF No Action oxycodone 5 mg tablet 5 mg PO Q6H PRN (Reason: pain) Qty: 20 0RF Rx Instructions: Partial Fill upon patient request. diclofenac epolamine 1.3 % patch 12 hour 1 patch topical BID Qty: 30 0RF benzonatate 200 mg capsule 200 mg PO TID PRN (Reason: cough) Qty: 30 0RF codeine-guaifenesin 10-100 mg/5 mL liquid 10 ml PO Q6H PRN (Reason: cough) Qty: 237 0RF diclofenac sodium 1 % gel 2 g topical QID Qty: 100 0RF Rx Instructions: apply to painful area at the sternum ketorolac 10 mg tablet 10 mg PO .B.i.d. PRN (Reason: pain) Qty: 7 0RF Rx Instructions: Do not take this medication with NSAIDs/aspirin/ibuprofen Referrals: [facility] [Primary Care Provider] - 04/13/23
--- NOTE | 2023-04-11 08:08 | PC.NURSE ---
at arrival to bed pt is slumped in WC, able to assist in transfer but minimally. skin pwd. clear mucous in emisis bag. daughter states pt is suspecting and ulcer. pain is upper abd. axox3 and not responding until asked about pain then begins to moan. moist mm reports vomiting all po attemtps. aware ofpolan for pain meds and ct.
[2023-04-11 08:21] LABS: MANUAL DIFF FLAG NO
[2023-04-11 08:22] LABS: Basophils Percent Auto 0.2 % (0-2); Hematocrit 41.4 % (37.0-47.0); Imm Gran Abs Auto 0.03 X10*3/uL (0.00-0.03); Imm Gran Pct Auto 0.5 % (0.0-0.4); Lymphocytes Absolute Auto 0.5 X10*3/uL (1.2-4.9); Lymphocytes Percent Auto 8.6 % (20-40); Mean Corpuscular HGB Conc 33.8 g/dl (31.0-35.0); Mean Corpuscular Hemoglobin 29.7 pg (27.0-33.0); Mean Corpuscular Volume 87.7 fL (80.0-98.0); Mean Platelet Volume 9.9 fL (9.4-12.3); Monocytes Absolute Auto 0.7 X10*3/uL (0.1-1.2); Monocytes Percent Auto 11.5 % (2-11); Neutrophils Percent Auto 79.2 % (45-73); Platelet Count 185 X10*3/uL (160-400); Red Blood Count 4.72 X10*6/uL (4.20-5.50); Red Cell Distribution Width 12.3 % (11.0-16.0); White Blood Count 6.3 X10*3/uL (4.8-10.8)
[2023-04-11] MEDS: Metoclopramide HCl 10 MG/2 ML VIAL IVPUSH ×2 (08:23→11:15)
[2023-04-11] MEDS: HYDROmorphone HCl 0.5 MG/0.5 ML SYRINGE IVPUSH (08:23)
[2023-04-11] MEDS: 0.9 % Sodium Chloride 1,000 ML 999 ML IV (08:23)
[2023-04-11 08:25] VITALS: BP 129/78; PULSE 83; RESP 18; O2SAT 96
[2023-04-11 08:37] LABS: Alanine Aminotransferase 16 U/L (0-31); Albumin Level 3.9 g/dL (3.5-5.0); Alkaline Phosphatase 65 U/L (39-117); Anion Gap 19 (12-20); Aspartate Amino Transferase 34 U/L (5-31); Bilirubin Total 0.3 mg/dL (0.0-1.0); Blood Urea Nitrogen 19 mg/dL (9-16); Calcium 9.2 mg/dL (8.4-10.2); Carbon Dioxide 21 mmol/L (22-29); Chloride 102 mmol/L (96-108); Creatinine Clr Calc Pharmacy 72.3; Estimated Glomerular Filt Rate > 60; Glucose Random 75 mg/dL (60-115); Lipase 79 U/L (8-78); Potassium 4.2 mmol/L (3.3-5.1); Sodium 138 mmol/L (135-145)
[2023-04-11] MEDS: iohexoL 350 MG/ML 100 ML INFUS..BTL 85 ML IV (09:15)
[2023-04-11 10:48] LABS: Appearance Urine Clear; Color Urine Yellow; Glucose Urine UA Negative (Negative); Leukocyte Esterase Urine Small (1+) (Negative); Nitrite Urine Negative (Negative); Specific Gravity - Urine >= 1.030 (1.005-1.025); UMIC TRIGGER UACC YES; Urine Blood Small (1+) (Negative); Urine Ketones 80 mg/dL (Negative); Urine Protein 30 (1+) mg/dL (Neg-Trace)
[2023-04-11 10:54] LABS: Bacteria Urine None Seen (None Seen); Hyaline Casts Urine 0-2 /LPF (0-2); UACC Culture Trigger YES; WBC Urine >50 /HPF (0-5)
[2023-04-11] MEDS: cefTRIAXone sodium 1 GM in 0.9 % Sodium Chloride 50 ML IV (11:15)
[2023-04-11 12:00] VITALS: BP 125/70; PULSE 90; RESP 18; TEMP 36.3; O2SAT 92
== END 2023-04-11 12:08 | disposition home or self-care (01) ==
PROVIDERS: Emergency Provider Emergency Medicine Emergency Medical Services
DX: R10.13 Epigastric pain (principal); I45.10 Unspecified right bundle-branch block; R51.9 Headache, unspecified; Z87.891 Personal history of nicotine dependence; Z79.899 Other long term (current) drug therapy
CPT/HCPCS: 36415; 74177; 80053; 81001; 83690; 85025; 87086; 93005; 96361; 96374; 96375; 96376; 99284; J0696; J1170; J2765; Q9967

== ENCOUNTER → 2023-04-11 07:54 | Outpatient (BNV) | payer MEDICAID, SELFPAY | PROVIDERS: Emergency Provider Emergency Medicine Emergency Medical Services; Visit Provider Internal Medicine | DX: R94.31 Abnormal electrocardiogram [ECG] [EKG] (principal); I45.10 Unspecified right bundle-branch block | CPT/HCPCS: 93010 ==

== ENCOUNTER 2023-04-13 16:56 | Emergency (ER) | payer MEDICAID, SELFPAY ==
[2023-04-13 17:05] VITALS: BP 128/88; PULSE 104; RESP 18; TEMP 36.6; O2SAT 97; BMI 32.3
--- NOTE | 2023-04-13 17:18 | ED_ITS ---
HPI - Abdominal Pain General Chief Complaint: Abdominal Pain Stated Complaint: abd pain Time Seen by Provider: 04/14/23 00:04 Source: patient, family (daughter), RN notes reviewed and old records reviewed Mode of arrival: ambulatory Limitations: no limitations History of Present Illness HPI narrative: 62-year-old female presents for evaluation of upper abdominal pain. Patient was seen here on 04/11/2023 for similar. She had labs, CT scan abdomen pelvis which showed proximal ureteral dilatation with mild hydronephrosis bilaterally but no distal dilatation and no obvious obstruction and was thought to be related to a distended bladder. Patient was discharged with cephalexin for UTI as well as omeprazole. The patient called her primary doctor today and was apparently told to ?go to the hospital to be admitted. ? The patient complains of 02/09 upper abdominal pain Patient describes her pain as stabbing, in the epigastric region The pain radiates to her back Reports history of and cholecystectomy She states that she has not been eating or drinking in the last 5 days due to the pain and nausea. She also notes that her pain seems to be worse after drinking water or eating Patient reports that all of her crying has led to headaches Related Data Previous Rx's Medication Instructions Recorded ketorolac 10 mg tablet 10 mg PO .B.i.d. PRN pain #7 tabs 03/16/23 benzonatate 200 mg capsule 200 mg PO TID PRN cough #30 caps 03/25/23 codeine 10 mg-guaifenesin 100 mg/5 10 ml PO Q6H PRN cough #237 mL 03/25/23 mL oral liquid diclofenac epolamine 1.3 % 1 patch topical BID #30 ea 03/25/23 transdermal 12 hour patch diclofenac sodium 1 % topical gel 2 g topical QID #100 grams 03/25/23 oxycodone 5 mg tablet 5 mg PO Q6H PRN pain #20 tabs 03/25/23 cephalexin 500 mg capsule 500 mg PO TID 7 days #21 caps 04/11/23 pantoprazole 40 mg tablet,delayed 40 mg PO DAILY #14 tabs 04/11/23 release (Protonix) calcium carbonate 1,000 1 tab PO QID PRN indigestion #30 04/14/23 mg-simethicone 60 mg chewable tabs tablet (Maalox Advanced) Allergies Allergy/AdvReac Type Severity Reaction Status Date / Time aspirin [ASA] Allergy Intermediate FRY Verified 04/13/23 17:05 STOMACH ibuprofen Allergy Unknown unknown Verified 04/13/23 17:05 Review of Systems Constitutional: Denies chills, Denies fever(s) and Reports headache(s) Eyes: Denies blurry vision Reports headache(s) and Denies sore throat Cardiovascular: Denies chest pain and Denies dyspnea Respiratory: Denies cough and Denies dyspnea Gastrointestinal: Reports abdominal pain, Denies melena, Denies hematochezia, Reports diarrhea, Reports nausea and Reports vomiting Musculoskeletal: Reports back pain Skin/Breast: Denies rash Reports headache(s) Psychiatric: Reports anxiety PMFSH Past Medical History Surgical History No pertinent past surgical history Family History Family History Mother Heart problem Father Emphysema lung Social History Social History Alcohol intake: current Alcohol intake frequency: a few times a month Patient Tobacco Use Status: Former Tobacco user Advance Directives: No Advance Directives Information Provided: No Physical Exam ED Vital Signs: Vital Signs - 24 hr 04/13/23 17:05 04/13/23 23:31 Temperature 97.8 F 98.3 F Pulse Rate 104 H 86 Respiratory Rate 18 20 Blood Pressure 128/88 111/84 Pulse Oximetry 97 97 Oxygen Delivery Method Room Air Room Air BMI result Body Mass Index 32.3 Const General: healthy appearing, alert and awake Nutritional Appearance: well nourished Orientation/consciousness: patient oriented x3 HENMT Head: Yes normocephalic and Yes atraumatic Neck Neck: Yes full ROM Resp Effort & Inspection: normal respiratory effort, able to speak in complete sentences and not labored Cardio Rate: regular rate Rhythm: regular rhythm GI Inspection: No distended Palpation (GI): Soft to palpation, not firm, Tenderness to palpation present (GI) in the epigastrum, Guarding due to palpation present (GI) other (Epigastric) and not rigid Auscultation: normoactive bowel sounds Skin General skin exam: elasticity normal Neuro General: patient oriented x3 Cranial nerves: Yes Bilaterally intact EOM present Cognition (Neuro): normal cognition Extrem Other: Moving all extremities well without any obvious deformities Course Course Course Narrative: RME: 62yo F w/PMHx UTI on Keflex, c/o continued abdominal pain, N/V/D and PERRY's. Patient was seen & tx in our ED on 04/11 Dx w/UTI, had negative labs and CT showing bilateral hydro & proximal ureteral dilation. Also reports decreased PO intake. reports compliance with Abx. Patient was instructed to come to the ED patient tearful, yelling labs, UA Full HPI, ROS and PE to be performed by primary ED provider. Reevaluation(s) Reevaluation #1: Patient expressed dissatisfaction with discharge as she came to the hospital expecting to be admitted. Was explain to her that she does not meet criteria for admission. The patient was will to waiting room and spent on the floor. Time: 02:13 Medical Decision Making Medical Decision Making MDM Narrative: 62-year-old female presents for evaluation continued abdominal pain. I reviewed her recent workup. As well as workup today. Of note was that her lipase was slightly elevated to 111. It was just above normal at 79 2 days ago. Additionally, the patient's CO2 was noted to be low at 13. I suspect this was due to hyperventilating. I add on a VBG which shows a CO2 of 7.30, again this is likely to a decreasing carboxic acid due to hyperventilation. Repeat chemistries showed no other significant changes, her lipase improved to 93. Her CT scan from 2 days ago showed no evidence of pancreas inflammation. Patient's vital signs are all within normal limits. The patient is sleeping comfortably when no staff members are in the room. As soon as staff walked into the room she begins moaning. Patient's history and exam is most consistent with peptic ulcer disease/gastritis. She is already status post cholecystectomy. I do not see any indication for further emergent imaging at this time. The patient has no transaminitis or electrolyte abnormalities despite reporting anorexia for the last 5 days. I feel the patient is stable for discharge with GI follow-up and she can be prescribed Maalox in addition to the omeprazole she got a few days ago. It is also possible that the antibiotics for her UTI is worsening GI upset. Discussed plan with attending, Dr Kline who agrees with plan Differential Diagnosis Differential Diagnoses: The differential diagnosis associated with the presentation includes Peptic ulcer disease Gastritis Gastroenteritis Pancreatitis Abdominal pain Bowel obstruction less likely Admission/Observation Consideration of admission/observation: Escalation of care including admission/observation considered Consider admission for intractable abdominal pain over the were no significant objective findings to explain this in the patient can follow-up as an outpatient with GI Lab Data MDM Lab Attestation statement: I reviewed the patient's lab results. No leukocytosis or anemia. Normal platelet count. No significant electrolyte abnormalities. The patient's CO2 was low at 13 and the lipase is elevated to 111. This is not high enough to suggest acute pancreatitis as it is slightly above normal but not 3 times the upper limit of normal. The patient also had a CT scan 2 days ago that showed no evidence of peripancreatic inflammation 04/13/23 17:19 04/14/23 00:53 Labs: Lab Results 04/13/23 04/13/23 04/14/23 Range/Units 17:17 17:19 00:23 WBC 4.9 (4.8-10.8) X10*3/uL RBC 5.22 (4.20-5.50) X10*6/uL Hgb 15.4 (12.0-16.0) g/dl Hct 45.4 (37.0-47.0) % MCV 87.0 (80.0-98.0) fL MCH 29.5 (27.0-33.0) pg MCHC 33.9 (31.0-35.0) g/dl RDW 12.3 (11.0-16.0) % Plt Count 223 (160-400) X10*3/uL MPV 9.5 (9.4-12.3) fL Immature Gran % (Auto) 0.2 (0.0-0.4) % Neut % (Auto) 59.3 (45-73) % Lymph % (Auto) 20.9 (20-40) % Vermilion % (Auto) 19.2 H (2-11) % Eos % (Auto) 0.2 (0-4) % Baso % (Auto) 0.2 (0-2) % Lymph # (Auto) 1.0 L (1.2-4.9) X10*3/uL Vermilion # (Auto) 1.0 (0.1-1.2) X10*3/uL Eos # (Auto) 0.0 (0.0-0.4) X10*3/uL Baso # (Auto) 0.0 (0.0-0.2) X10*3/uL Abs Immat Gran (auto) 0.01 (0.00-0.03) X10*3/uL Absolute Neuts (auto) 2.9 (2.0-8.3) x10*3/uL Absolute Nucleated RBC 0.000 (0.0-0.012) X10*3/uL Nucleated RBC % (auto) 0.0 (0.0-0.2) /100WBC VBG pH (7.32-7.43) VBG pCO2 mmHg VBG pO2 mmHg VBG HCO3 (22-26) mmol/L VBG O2 Saturation % VBG Base Excess mmol/L Sodium 137 (135-145) mmol/L Potassium 3.8 (3.3-5.1) mmol/L Chloride 108 (96-108) mmol/L Carbon Dioxide 13 L (22-29) mmol/L Anion Gap 20 (12-20) BUN 9 (9-16) mg/dL Creatinine 0.81 (0.5-1.4) mg/dL Estim Creat Clear Calc 62.4 Estimated GFR > 60 Random Glucose 71 (60-115) mg/dL Calcium 9.5 (8.4-10.2) mg/dL Magnesium 1.9 (1.6-2.6) mg/dL Total Bilirubin 0.2 (0.0-1.0) mg/dL AST 29 (5-31) U/L ALT 15 (0-31) U/L Alkaline Phosphatase 65 (39-117) U/L Total Protein 7.4 (6.5-8.0) g/dL Albumin 4.0 (3.5-5.0) g/dL Lipase 111 H (8-78) U/L Urine Color Yellow Urine Appearance Cloudy Urine pH 6.5 (5.0-9.0) Ur Specific Dequincy 1.025 (1.005-1.025) Urine Protein 100 (2+) H (Neg-Trace) mg/dL Urine Glucose (UA) Negative (Negative) mg/dL Urine Ketones >=160 (Negative) mg/dL Urine Blood Negative (Negative) Urine Nitrite Negative (Negative) Ur Leukocyte Esterase Moderate (2+) H (Negative) Urine RBC 0-2 (0-2) /HPF Urine WBC 21-50 H (0-5) /HPF Ur Squamous Epith Cells 6-10 (0-2) /HPF Urine Bacteria None Seen (None Seen) Hyaline Casts 3-5 (0-2) /LPF Influenza Type A (PCR) NEGATIVE (Negative) Influenza Type B (PCR) NEGATIVE (Negative) RSV RNA Qual (PCR) NEGATIVE (Negative) SARS-CoV-2 RNA (RT-PCR) NEGATIVE (Negative) 04/14/23 04/14/23 Range/Units 00:53 01:00 WBC (4.8-10.8) X10*3/uL RBC (4.20-5.50) X10*6/uL Hgb (12.0-16.0) g/dl Hct (37.0-47.0) % MCV (80.0-98.0) fL MCH (27.0-33.0) pg MCHC (31.0-35.0) g/dl RDW (11.0-16.0) % Plt Count (160-400) X10*3/uL MPV (9.4-12.3) fL Immature Gran % (Auto) (0.0-0.4) % Neut % (Auto) (45-73) % Lymph % (Auto) (20-40) % Vermilion % (Auto) (2-11) % Eos % (Auto) (0-4) % Baso % (Auto) (0-2) % Lymph # (Auto) (1.2-4.9) X10*3/uL Vermilion # (Auto) (0.1-1.2) X10*3/uL Eos # (Auto) (0.0-0.4) X10*3/uL Baso # (Auto) (0.0-0.2) X10*3/uL Abs Immat Gran (auto) (0.00-0.03) X10*3/uL Absolute Neuts (auto) (2.0-8.3) x10*3/uL Absolute Nucleated RBC (0.0-0.012) X10*3/uL Nucleated RBC % (auto) (0.0-0.2) /100WBC VBG pH 7.30 L (7.32-7.43) VBG pCO2 26 mmHg VBG pO2 48 mmHg VBG HCO3 13 L (22-26) mmol/L VBG O2 Saturation 78.0 % VBG Base Excess -11.3 mmol/L Sodium 136 (135-145) mmol/L Potassium 4.1 (3.3-5.1) mmol/L Chloride 106 (96-108) mmol/L Carbon Dioxide 14 L (22-29) mmol/L Anion Gap 20 (12-20) BUN 12 (9-16) mg/dL Creatinine 0.82 (0.5-1.4) mg/dL Estim Creat Clear Calc 61.6 Estimated GFR > 60 Random Glucose 68 (60-115) mg/dL Calcium 8.9 D (8.4-10.2) mg/dL Magnesium (1.6-2.6) mg/dL Total Bilirubin 0.2 (0.0-1.0) mg/dL AST 27 (5-31) U/L ALT 12 (0-31) U/L Alkaline Phosphatase 61 (39-117) U/L Total Protein 7.0 (6.5-8.0) g/dL Albumin 3.8 (3.5-5.0) g/dL Lipase 93 H (8-78) U/L Urine Color Urine Appearance Urine pH (5.0-9.0) Ur Specific Dequincy (1.005-1.025) Urine Protein (Neg-Trace) mg/dL Urine Glucose (UA) (Negative) mg/dL Urine Ketones (Negative) mg/dL Urine Blood (Negative) Urine Nitrite (Negative) Ur Leukocyte Esterase (Negative) Urine RBC (0-2) /HPF Urine WBC (0-5) /HPF Ur Squamous Epith Cells (0-2) /HPF Urine Bacteria (None Seen) Hyaline Casts (0-2) /LPF Influenza Type A (PCR) (Negative) Influenza Type B (PCR) (Negative) RSV RNA Qual (PCR) (Negative) SARS-CoV-2 RNA (RT-PCR) (Negative) Independent Interpretation I performed an independent interpretation of an: EKG (Normal sinus rhythm with a rate of 82 beats per minute. No significant change compared to previous from 2 days ago) Medications Administered Discontinued Medications Generic Name Dose Route Start Last Admin Trade Name Freq PRN Reason Stop Dose Admin Al Hydroxide/Mg Hydroxide 30 ml 12/13/23 00:34 04/14/23 00:50 Magnesium Hydrox/Alum Hydrox 30 Ml Oral.Susp PO 04/14/23 00:35 30 ml ONCE ONE Administration Lidocaine HCl 15 ml 04/14/23 00:34 04/14/23 00:50 Lidocaine Hcl Viscous 2 % 15 Ml Solution MUCOUS MEM 04/14/23 00:35 15 ml ONCE ONE Administration Ondansetron HCl 4 mg 04/14/23 00:34 04/14/23 00:50 Ondansetron Odt 4 Mg Tab.Rapdis TRANSLINGU 04/14/23 00:35 4 mg ONCE ONE Administration Discharge Plan Discharge Clinical Impression: Abdominal pain Patient Disposition: Home, Self-Care Instructions: Abdominal Pain (ED) Additional Instructions: Your workup in the emergency department today was reassuring. You do not meet criteria for admission Your abdominal pain is most likely related to peptic ulcer disease versus gastritis. This may be exacerbated due to the antibiotic that you are taking, but I recommend you continue taking it to clear your UTI Continue taking the omeprazole as prescribed. Take Maalox with meals to help with abdominal discomfort Follow-up with GI, call tomorrow to schedule appointment Prescriptions: New Maalox Advanced 1,000-60 mg tablet,chewable 1 tab PO QID PRN (Reason: indigestion) Qty: 30 0RF No Action oxycodone 5 mg tablet 5 mg PO Q6H PRN (Reason: pain) Qty: 20 0RF Rx Instructions: Partial Fill upon patient request. diclofenac epolamine 1.3 % patch 12 hour 1 patch topical BID Qty: 30 0RF benzonatate 200 mg capsule 200 mg PO TID PRN (Reason: cough) Qty: 30 0RF codeine-guaifenesin 10-100 mg/5 mL liquid 10 ml PO Q6H PRN (Reason: cough) Qty: 237 0RF diclofenac sodium 1 % gel 2 g topical QID Qty: 100 0RF Rx Instructions: apply to painful area at the sternum ketorolac 10 mg tablet 10 mg PO .B.i.d. PRN (Reason: pain) Qty: 7 0RF Rx Instructions: Do not take this medication with NSAIDs/aspirin/ibuprofen pantoprazole [Protonix] 40 mg tablet,delayed release (DR/EC) 40 mg PO DAILY Qty: 14 0RF cephalexin 500 mg capsule 500 mg PO TID 7 Days Qty: 21 0RF Referrals: Isabel Powell MD [Physician] - (epigastric abdominal pain) Interventions: ED Discharge Assessment Last Done: 04/14/23 02:07 Discharge Date/Time: 04/14/23 02:10
[2023-04-13 17:30] LABS: MANUAL DIFF FLAG NO
[2023-04-13 17:33] LABS: Basophils Percent Auto 0.2 % (0-2); Eosinophils Percent Auto 0.2 % (0-4); Hematocrit 45.4 % (37.0-47.0); Hemoglobin 15.4 g/dl (12.0-16.0); Imm Gran Abs Auto 0.01 X10*3/uL (0.00-0.03); Imm Gran Pct Auto 0.2 % (0.0-0.4); Lymphocytes Percent Auto 20.9 % (20-40); Mean Corpuscular HGB Conc 33.9 g/dl (31.0-35.0); Mean Corpuscular Hemoglobin 29.5 pg (27.0-33.0); Mean Platelet Volume 9.5 fL (9.4-12.3); Monocytes Percent Auto 19.2 % (2-11); Neutrophils Absolute Auto 2.9 x10*3/uL (2.0-8.3); Neutrophils Percent Auto 59.3 % (45-73); Platelet Count 223 X10*3/uL (160-400); Red Blood Count 5.22 X10*6/uL (4.20-5.50); Red Cell Distribution Width 12.3 % (11.0-16.0); White Blood Count 4.9 X10*3/uL (4.8-10.8)
[2023-04-13 17:44] LABS: Alanine Aminotransferase 15 U/L (0-31); Alkaline Phosphatase 65 U/L (39-117); Anion Gap 20 (12-20); Aspartate Amino Transferase 29 U/L (5-31); Bilirubin Total 0.2 mg/dL (0.0-1.0); Blood Urea Nitrogen 9 mg/dL (9-16); Calcium 9.5 mg/dL (8.4-10.2); Carbon Dioxide 13 mmol/L (22-29); Chloride 108 mmol/L (96-108); Creatinine Clr Calc Pharmacy 62.4; Estimated Glomerular Filt Rate > 60; Glucose Random 71 mg/dL (60-115); Lipase 111 U/L (8-78); Magnesium 1.9 mg/dL (1.6-2.6); Potassium 3.8 mmol/L (3.3-5.1); Sodium 137 mmol/L (135-145); Total Protein 7.4 g/dL (6.5-8.0)
[2023-04-13 18:11] LABS: Influenza A PCR NEGATIVE (Negative); Influenza B PCR NEGATIVE (Negative); Resp Syncy Virus RNA Qual PCR NEGATIVE (Negative); SARS COV2 PCR INHOUSE NEGATIVE (Negative)
[2023-04-13 23:31] VITALS: BP 111/84; PULSE 86; RESP 20; TEMP 36.8; O2SAT 97
[2023-04-14 00:33] LABS: Appearance Urine Cloudy; Color Urine Yellow; Glucose Urine UA Negative (Negative); Leukocyte Esterase Urine Moderate (2+) (Negative); Nitrite Urine Negative (Negative); PH 6.5 (5.0-9.0); Specific Gravity - Urine 1.025 (1.005-1.025); UMIC TRIGGER UACC YES; Urine Blood Negative (Negative); Urine Ketones >=160 mg/dL (Negative); Urine Protein 100 (2+) mg/dL (Neg-Trace)
[2023-04-14 00:37] LABS: Bacteria Urine None Seen (None Seen); RBC Urine 0-2 /HPF (0-2); UACC Culture Trigger YES; WBC Urine 21-50 /HPF (0-5)
--- NOTE | 2023-04-14 00:41 | ECG_ITS ---
Test Reason : PAIN Blood Pressure : / mmHG Vent. Rate : 082 BPM Atrial Rate : 082 BPM P-R Int : 152 ms QRS Dur : 124 ms QT Int : 404 ms P-R-T Axes : 067 008 051 degrees QTc Int : 472 ms Normal sinus rhythm Right bundle branch block Abnormal ECG When compared with ECG of 11-APR-2023 08:03, No significant change was found Referred By: Alexi Ramirez Electronically Signed By:Tino Licea
[2023-04-14] MEDS: Ondansetron ODT 4 MG TAB.RAPDIS TRANSLINGU (00:50)
[2023-04-14] MEDS: Magnesium Hydrox/Alum Hydrox 30 ML ORAL.SUSP PO (00:50)
[2023-04-14] MEDS: Lidocaine HCl Viscous 2 % 15 ML SOLUTION MUCOUS MEM (00:50)
[2023-04-14 01:02] LABS: Venous Blood Gas Refer to POC result
[2023-04-14 01:05] LABS: VBG Base Excess -11.3 mmol/L; VBG HCO3 13 mmol/L (22-26); VBG pCO2 26 mmHg; VBG pO2 48 mmHg
[2023-04-14 01:15] LABS: Alanine Aminotransferase 12 U/L (0-31); Albumin Level 3.8 g/dL (3.5-5.0); Alkaline Phosphatase 61 U/L (39-117); Anion Gap 20 (12-20); Aspartate Amino Transferase 27 U/L (5-31); Bilirubin Total 0.2 mg/dL (0.0-1.0); Blood Urea Nitrogen 12 mg/dL (9-16); Calcium 8.9 mg/dL (8.4-10.2); Carbon Dioxide 14 mmol/L (22-29); Chloride 106 mmol/L (96-108); Creatinine Clr Calc Pharmacy 61.6; Estimated Glomerular Filt Rate > 60; Glucose Random 68 mg/dL (60-115); Lipase 93 U/L (8-78); Potassium 4.1 mmol/L (3.3-5.1); Sodium 136 mmol/L (135-145)
== END 2023-04-14 02:10 | disposition home or self-care (01) ==
PROVIDERS: Physician Assistant; Emergency Provider Emergency Medicine
DX: R10.10 Upper abdominal pain, unspecified (principal); R11.2 Nausea with vomiting, unspecified; N13.30 Unspecified hydronephrosis; I45.10 Unspecified right bundle-branch block; R07.89 Other chest pain; M54.50 Low back pain, unspecified; R10.13 Epigastric pain; Z20.822 Contact with and (suspected) exposure to COVID-19; Z20.828 Contact with and (suspected) exposure to other viral communicable diseases; Z79.899 Other long term (current) drug therapy; Z87.891 Personal history of nicotine dependence
CPT/HCPCS: 0241U; 36415; 51798; 80053; 81001; 82803; 83690; 83735; 85025; 87086; 93005; 99283; 99285

== ENCOUNTER → 2023-04-14 00:41 | Outpatient (BNV) | payer MEDICAID, SELFPAY | PROVIDERS: Emergency Provider Emergency Medicine; Visit Provider Internal Medicine Cardiovascular Disease | DX: R94.31 Abnormal electrocardiogram [ECG] [EKG] (principal) | CPT/HCPCS: 93010 ==

== ENCOUNTER 2023-04-16 15:51 | Outpatient (REF) | payer MEDICAID, SELFPAY | END 2023-04-16 15:52 | disposition home or self-care (01) | LOC: HO.CHCLNP 15:51 | PROVIDERS: Visit Provider Internal Medicine | DX: R10.13 Epigastric pain (principal) | CPT/HCPCS: 87086 ==

== ENCOUNTER 2023-10-03 15:09 | Outpatient (REF) | payer MEDICAID, SELFPAY ==
--- NOTE | ~2023-10-03 | MR_ITS ---
EXAMINATION: MR LUMBAR SPINE WITHOUT CONTRAST CLINICAL INFORMATION: 62-year-old female complaining of low back pain radiating down right leg. COMPARISON: 08/28/2016, 08/31/2016 MRI lumbar. X-rays lumbar spine 02/15/2023. TECHNIQUE: Multiplanar multisequence MR imaging of the lumbar spine was done without IV contrast. Standard sequences were utilized. FINDINGS: Coronal Alignment: Mild levoconvex scoliosis, with mild rotatory component, apex at L2-L3. Sagittal Alignment: There is a 3 mm retrolisthesis of L2 on L3, and 3 mm anterolisthesis of L5 on S1. Lumbosacral Junction: Normal. No transitional level. Vertebral Bodies/Bone Marrow: There are edematous endplate change is present at L2-L3 oriented to the right, worsened from prior exam. Mild edema within and abutting abutting the L2-L3 facet joints on the right is also noted, similar to the prior exam likely representing stress response. Previously seen edema within the right paraspinal musculature has resolved. Discs: There is moderate to severe loss of disc height and signal at L2-L3, and moderate loss at L4-L5 and to the right at L5-S1. Remainder of the intervertebral discs appear maintained. Spinal Canal: No abnormal developmental findings. Conus Medullaris: Terminates at inferior endplate L1. Morphology and signal is normal. Mild prominence of the central canal of the spinal cord spanning the inferior endplate of T11 to the mid T12 vertebral body is stable. Intradural Nerve Roots: Normal in appearance. No clumping or mass is identified. Axial Disc Space Images: T12-L1: Mild right greater than left hypertrophic facet changes. No central canal or neural foraminal narrowing. No change. L1-L2: Mild hypertrophic facet changes right greater than left, with minimal posterior ligamentous thickening/infolding. Trace disc bulge diffusely. No central canal, lateral recess, or neural foraminal narrowing. No change. L2-L3: Worsening anterolisthesis. Worsening disc degeneration. Worsening edematous endplate changes oriented to the right. Diffuse disc bulge present, with superimposed bilateral foraminal disc extrusions which extend lateral to foramen. Coupled with mild to moderate right greater than left hypertrophic degenerative facet changes, mild to moderate posterior ligamentous thickening/infolding, combination of findings is resulting in mild central canal stenosis, moderate right and mild left subarticular recess stenosis with contact but no impingement of the traversing right L3 roots, and moderate right and mild left neural foraminal narrowing. No exiting nerve root impingement. Findings have worsened at this level. L3-L4: Moderate hypertrophic degenerative facet changes bilaterally, with subtle stress facet effusions bilaterally. Subtle bilateral foraminal disc protrusions without mass effect. No significant central canal, subarticular recess, or left neural foraminal narrowing. There is mild right neural foraminal narrowing. No interval change. L4-L5: Moderate to severe left greater than right degenerative hypertrophic facet changes with bilateral facet joint effusions, and mild to moderate posterior ligamentous thickening/infolding. Findings are slightly worsened. There is a shallow diffuse disc bulge which extends into both foraminal zones, with central and right foraminal zone annular fissuring. Combination of findings results in minimal central canal narrowing. No significant subarticular recess narrowing, and mild to moderate left and mild right neural foraminal narrowing. Findings appear unchanged. L5-S1: Stable subtle anterolisthesis. Moderate degenerative facet changes bilaterally, shallow diffuse bulging disc without mass effect. No significant central canal, subarticular recess, or foraminal narrowing. No change. Imaged SI Joints: Mild arthritis bilaterally. Paravertebral and Included Extraspinal Soft Tissues: Normal caliber aorta. Kidneys appear grossly normal. No adenopathy. Common duct patent. MR/MR lumbar spine wo con IMPRESSION: 1. Worsening disc degeneration and rightward edematous endplate changes at L2-L3, with associated right L1-L2 and L2-L3 facet joint edema (likely stress response). Previously seen paraspinous muscular edema has resolved. 2. Mild levoconvex scoliosis, with mild rotatory component, unchanged. 3. Slightly advancing facet degeneration at L4-L5 left greater than right. Diffuse shallow disc bulge present at this level with central and right foraminal zone annular fissuring. 4. No high-grade central canal, subarticular recess, or neural foraminal stenosis at any level. Moderate subarticular recess stenosis on the right at L2-L3. See the body of the report for additional details.
== END 2023-10-03 15:10 | disposition home or self-care (01) ==
LOC: HO.MRI 15:09
PROVIDERS: PCP Internal Medicine; Visit Provider Internal Medicine
DX: M54.16 Radiculopathy, lumbar region (principal)
CPT/HCPCS: 72148

== ENCOUNTER → 2023-10-03 15:09 | Outpatient (BNV) | payer MEDICAID, SELFPAY | PROVIDERS: PCP Internal Medicine; Visit Provider Radiology Diagnostic Radiology | DX: M47.26 Other spondylosis with radiculopathy, lumbar region (principal) | CPT/HCPCS: 72148 ==

== ENCOUNTER 2024-02-10 18:04 | Outpatient (REF) | payer MEDICAID, SELFPAY ==
[2024-02-11 10:33] LABS: Bacterial Vaginosis PCR POSITIVE (Negative); Candida Group PCR NOT DETECTED (Not Detect); Candida glab krusei PCR NOT DETECTED (Not Detect); Trichomonas vaginalis PCR NOT DETECTED (Not Detect)
[2024-02-12 08:58] LABS: C. trachomatis RNA TMA NOT DETECTED (NOT DETECTED); N. gonorrhoeae RNA TMA NOT DETECTED (NOT DETECTED); Trichomonas (NAAT) NOT DETECTED (NOT DETECTED)
[2024-03-02 10:26] LABS: Thin Prep Source NONE GIVE
[2024-03-02 10:27] LABS: Clinical Information NONE GIVEN; Previous Biopsy Date NONE GIVEN
[2024-03-02 10:29] LABS: HPV mRNA E6/E7 Not Detected
== END 2024-02-10 18:05 | disposition home or self-care (01) ==
LOC: HO.LNP 18:04
PROVIDERS: Visit Provider Family Medicine
DX: Z12.4 Encounter for screening for malignant neoplasm of cervix (principal)
CPT/HCPCS: 0352U; 87491; 87591; 87624; 87661; 88175

== ENCOUNTER 2024-03-27 16:24 | Outpatient (REF) | payer MEDICAID, SELFPAY ==
[2024-03-27 19:05] LABS: Cholesterol 199 mg/dL (<200); HDL Cholesterol 70 mg/dL (>40); LDL Cholesterol Calculated 115 mg/dL (<100); Triglycerides 71 mg/dL (<150)
== END 2024-03-27 16:25 | disposition home or self-care (01) ==
LOC: HO.CHCLDS 16:24
PROVIDERS: Visit Provider Internal Medicine
DX: R03.0 Elevated blood-pressure reading, without diagnosis of hypertension (principal)
CPT/HCPCS: 36415; 80061

== ENCOUNTER 2024-04-05 15:30 | Outpatient (REF) | payer MEDICAID, SELFPAY ==
--- OUTSIDE RECORDS SUMMARY | 2024-04-11 21:00 | XMS_ITS | Data Portability ---
Author Organization [facility], PAIN OFFICE Address [address] [facility] [address] [place] [address] Assessment Encounter Date Assessment Date Assessment LastModified by Organization Details LastModified Time 02/15/2017 02/15/2017 Geno Stone is a 56 year old Right handed woman with complaints of neck pain radiating into left upper extremity. She has been having an exacerbation of pain for the past six months. On exam, She has pain with flexion and Spurling's test is positive on the left. She had a course of physical therapy with no pain benefit. She is doing a home exercise program with persistent pain. I recommend a MRI Cervical spine to elucidate the etiology of pain. She will follow up to review the MRI and formulate treatment plans. She might benefit from a trial of cervical epidural steroid injection under fluoroscopic guidance in the future. [email or web address] Not available 02/24/2017 14:03:30 03/11/2017 03/11/2017 Geno Stone is a 56 year old Right handed woman with complaints of neck pain radiating into left upper extremity. She has been having an exacerbation of pain for the past six months. On exam, She has pain with flexion and Spurling's test is positive on the left. She had a course of physical therapy with no pain benefit. She is doing a home exercise program with persistent pain. MRI Cervical spine shows Mild degenerative changes as noted above with very mild effect upon central canal and neural foramen. C6-C7 subtle left paramedian disc herniation with questionable effect upon the left C7 nerve root. I recommend a trial of cervical epidural steroid injection under fluoroscopic guidance. The risks and benefits of the procedure were reviewed in detail. She wishes to proceed. An appointment will be booked after insurance approval She needs a laborer driver on the day of the procedure [email or web address] Not available 03/15/2017 11:41:39 04/13/2017 04/13/2017 Geno Stone is a 56 year old Right handed woman with complaints of neck pain radiating into left upper extremity. She has been having an exacerbation of pain for the past six months. On exam, She has pain with flexion and Spurling's test is positive on the left. She had a course of physical therapy with no pain benefit. She is doing a home exercise program with persistent pain. MRI Cervical spine shows Mild degenerative changes as noted above with very mild effect upon central canal and neural foramen. C6-C7 subtle left paramedian disc herniation with questionable effect upon the left C7 nerve root. She is here for a trial of cervical epidural steroid injection under fluoroscopic guidance. The risks and benefits of the procedure were reviewed in detail. She wishes to proceed. She needs to follow up in four weeks. [email or web address] Not available 04/15/2017 10:31:25 06/23/2017 06/23/2017 Geno Stone is a 56 year old Right handed woman with complaints of neck pain radiating into left upper extremity. She is here for a follow up after a trial of cervical epidural steroid injection under fluoroscopic guidance. She reports 90% pain benefit which is ongoing. She will follow up as needed. She was advised to continue with stretching exercises at home and to avoid lifting heavy things. [email or web address] Not available 06/23/2017 15:39:38 Plan of Treatment Reminders Order Date Submit Date Provider Last Modified By Organization Details Last Modified Time Details Appointments None recorded. Lab None recorded. Referral None recorded. Procedures None recorded. Surgeries None recorded. Imaging MRI, cervical spine, w/o contrast - Please schedule patient and fax info to [phone] . Thanks 2016 017 [facility], [address] [place] [address], [place], [address], 11:03:44 Medication Orders None recorded. Patient TargetsNo targets recorded. Patient Instructions Encounter Date Encounter Id Patient Instructions Last Modified By Organization Details Last Modified Time 03/11/2017 [id number] She was advised to continue with activities as tolerated. [email or web address] Not available 03/15/2017 11:41:54 04/13/2017 [id number] She was advised to continue with activities as tolerated. [email or web address] Not available 04/15/2017 10:30:50 06/23/2017 [id number] She was advised to continue with activities as tolerated. laurie Not available 06/23/2017 15:37:41 Reason for Referral None Reported. Results Created Date Observation Date Name Description Value Unit Range Abnormal Flag Note LastModifiedBy Organization Detail LastModifiedTime 02/27/20 17 MRI, cervi kim spine , w/o contr ast No observ ation record ed. laurie [address], [place], [address], 03/11/2017 15:13:26 Result Notes None recorded. Problems Name Problem SNOMED Code Status Onset Date Resolution Date Notes Provider Name and Address Organization Details Recorded Time Lumbar radiculopathy 273932320 Active Alec brooks MD [address] [facility] , [address], [place], [address], [place] [facility] 7 14:36:26 Cervical radiculopathy 03144968 Active Alec brooks MD [address] [facility] , [address], [place], [address], [place] [facility] 7 14:36:45 Degeneration of lumbar intervertebral disc 98243610 Active Alec brooks MD [address] [facility] , [address], [place], [address], [place] [facility] 7 14:37:02 Degeneration of cervical intervertebral disc 40218972 Active Alec brooks MD [address] [facility] , [address], [place], [address], [place] [facility] 7 14:37:20 Problem Notes None recorded. Procedures Surgical History Date Name Laterality Status Provider Name and Address Organization Details Recorded Time 04/13/20 17 Cervical Epidural Steroid injection under fluroscopic guidance completed Alec Soares MD [address] [facility] , [address], [place], [address], [place] [facility] 04/15/2017 10:29:33 Cholecystectomy completed Alec Soares MD [address] [facility] , [address], [place], [address], [place] [facility] 02/15/2017 14:41:22 Removal of ovarian cyst(s) completed Alec Soares MD [address] [facility] , [address], [place], [address], [facility] - [facility] Management 02/15/2017 14:41:44 Tubal Ligation completed Alec Soares MD [address] , [address], [place], [address], [facility] - [facility] Management 02/15/2017 14:43:04 Imaging Results Imaging Date Name Status LastModified by Organiz ation Details LastModified Time 02/26/2017 MRI, cervical spine, w/o contrast completed [address], [place], [address], 03/11/2017 15:13:26 Procedure Notes None recorded. Medical Equipment None Reported. Allergies Allergen ID Allergen Name Allergen Category Reaction Reaction Severity Criticality Documentation Date Start Date Code Code System Note Provider Name and Address Organization Details Recorded Time 64061 aspirin medicatio n other Not available Not available 02/15/2017 1191 RxNorm gastr itis Alec brooks MD [address] [facility] , [address], [place], [address], [facility] - [facility] 7 14:32:25 Medications Name Sig Start Date Stop Date Status Note LastModified by Organization Details LastModified Time ibuprofen 800 mg tablet active Not Available Not Available Not Available ondansetron HCl 4 mg tablet 06/23 completed Not Available Not Available Not Available tramadol 50 mg tablet Take 1 tablet every 6 hours by oral route. active 1/2 tablet missy 6 hours for pain Not Available Not Available Not Available famotidine 20 mg tablet active Not Available Not Available Not Available lorazepam 0.5 mg tablet active Not Available Not Available Not Available triamcinolo ne acetonide 0.1 % dental paste active Not Available Not Available Not Available docusate sodium 100 mg capsule active Not Available Not Available N ot Available levofloxaci n 500 mg tablet 03/11 completed Not Available Not Available Not Available Flexeril 10 mg tablet Take 1 tablet every day by oral route. active Not Available Not Available No t Available oxycodone 5 mg tablet 06/23 completed Not Available Not Available Not Available Colace active Not Available Not Availa ble Not Available omeprazole magnesium 20 mg capsule,del ayed release active Not Available Not Available Not Available Pain and Fever 325 mg tablet active Not Available Not Available No t Available Vitals Date Recorded Heart rate Oxygen saturation Oxygen saturation in Arterial blood by Pulse oximetry Body height Body mass index (BMI) Body weight Systolic blood pressure Diastolic blood pressure Provider Name and Address Organization Details Last Updated DateTime 7 71 /min 97 % 97 % 149.86 cm 27.9 kg/m2 11000.7 5 g 100 mm[Hg] 61 mm[Hg] Alec brooks MD [address] [facility] , [address], [place], [address], [place] [facility] 7 14:28:20 Date Recorded Body height Heart rate Oxygen saturation Oxygen saturation in Arterial blood by Pulse oximetry Systolic blood pressure Diastolic blood pressure Provider Name and Address Organization Details Last Updated DateTime 7 149.86 cm 63 /min 99 % 99 % 142 mm[Hg] 79 mm[Hg] Citlalli Flood [place] [facility] 7 14:26:42 Date Recorded Body height Heart rate Oxygen saturation Oxygen saturation in Arterial blood by Pulse oximetry Systolic blood pressure Diastolic blood pressure Provider Name and Address Organization Details Last Updated DateTime 7 149.86 cm 75 /min 97 % 97 % 150 mm[Hg] 91 mm[Hg] Citlalli Flood [place] [facility] 7 15:10:43 Date Recorded Body height Heart rate Oxygen saturation Oxygen saturation in Arterial blood by Pulse oximetry Systolic blood pressure Diastolic blood pressure Provider Name and Address Organization Details Last Updated DateTime 8 149.86 cm 70 /min 98 % 98 % 109 mm[Hg] 68 mm[Hg] Citlalli Flood [place] [facility] 8 15:23:05 Social History Question Answer Notes LastModified by Organizat ion Details LastModified Time Tobacco Smoking Status Never Smoker Not Available [email or web address] 02/16/2020 03:16:11 What Is Your Level Of Alcohol Consumption? None [id number] Information not available 02/16/2020 Are You Currently Employed? No [id number] Information not available 02/16/2020 Which Illicit Or Recreational Drugs Have You Used? None [id number] Information not available 02/16/2020 Education 8 Information n ot available 02/15/2017 What Is Your Occupation? Not Working [id number] Information not available 02/16/2020 Live Alone Or With Others? Alone Information not available 02/15/2017 Marital Status Single Informati on not available 02/15/2017 What Was The Date Of Your Most Recent Tobacco Screening? 06/23/2017 [id number] Information not available 02/16/2020 Sex: Unknown Functional Status None recorded. Mental Status None recorded. Family History Relationship Description Onset Age of this Age Resolved Age Notes LastModified by Organization Details LastModified Time Mother Diabetes mellitus [email or web address] Not available 01/31 14:37:59 Mother Essential hypertension [email or web address] Not available 1 14:38:19 Father Pulmonary emphysema [email or web address] Not available 01/31 14:38:36 Medical History Condition Response Anxiety Disorder Y Fibromyalgia Y Arthritis Y Depression Y Gynecological HistoryNo gynecological history recorded. Obstetrics History GPAL:G 0 P 0 0 0 0 Past Encounters Encounter ID Performer Location Encounter Start Date Encounter Closed Date Diagnosis/Indication Diagnosis SNOMED-CT Code Diagnosis ICD10 Code [id number] Alec Soares MD PAIN OFFICE [address] [place] [address] 02/15/2017 14:24:46 02/24/2017 14:04:11 Cervical radiculopathy 47192088 M54.12 Degenerati on of cervical intervertebral disc 52214129 M50.30 Degenerati on of lumbar intervertebral disc 02586540 M51.36 Lumbar radiculopathy 128 231581 M54.16 [id number] Alec Soares MD PAIN OFFICE [address] [place] [address] 03/11/2017 14:13:37 03/15/2017 11:42:47 Cervical radiculopathy 47442382 M54.12 Degenerati on of cervical intervertebral disc 38362417 M50.30 Degenerati on of lumbar intervertebral disc 75776624 M51.36 Lumbar radiculopathy 128 849255 M54.16 [id number] Alec Soares MD PAIN OFFICE [address] [place] [address] 04/13/2017 14:43:45 04/15/2017 10:36:36 Cervical radiculopathy 08047850 M54.12 Degenerati on of cervical intervertebral disc 58389645 M50.30 Degenerati on of lumbar intervertebral disc 79917400 M51.36 Lumbar radiculopathy 128 529133 M54.16 [id number] Alec Soares MD PAIN OFFICE [address] [place] [address] 06/23/2017 14:47:50 06/23/2017 15:40:30 Cervical radiculopathy 54779946 M54.12 Degenerati on of cervical intervertebral disc 65396597 M50.30 Degenerati on of lumbar intervertebral disc 01302030 M51.36 Lumbar radiculopathy 128 497255 M54.16 Health Concerns Section Related Observation LastModified by Organization Detai ls LastModified Time None Recorded Concern Status LastModified by Organization Details LastModified Time None Recorded Advance Directives Directive None Recorded Payers Encounter Date Sequence Insurance Name Policy Number Policy Soria Covered Member ID Soria Member ID Guarantor Name 02/15/2017 1 [facility] [employer] - TOGETHER (MEDICAID HMO) Geno Stone [id number] Geno Stone 03/11/2017 1 [facility] [employer] - TOGET[employer] (MEDICAID HMO) Geno Stone [id number] Geno Stone 04/13/2017 1 [facility] [employer] - TOGETHER (MEDICAID HMO) Geno Stone [id number] Geno Stone 06/23/2017 1 [facility] [employer] - TOGETHER (MEDICAID HMO) Geno Stone [id number] Geno Stone Notes Date Note Type Note Provider Name and Address Organization Details Recorded Time 02/15/2017 text/html Geno Stone i s a 56 year old Right handed woman with complaints of neck pain radiating into left upper extremity. She is also complaining of low back pain radiating into left lower extremity. She states her neck pain is her greatest pain. The pain started spontaneously and is becoming greater. She describes the pain as a sharp stabbing pain which radiates into her left upper extremity with numbness and pins and needles sensation. Current pain level is high. Pain is aggravated by activity. She had a course of physical therapy which did not help. She is trying to do a home exercise program but has persistent pain. Alec Soares MD [address] [facility] , [address], [place], [address], [facility] - [facility] Management 03/03/2017 08:34:41 03/11/2017 text/html She is here for a follow up to review MRI cervical spine. MRI Cervical spine shows Mild degenerative changes with mild effect upon central canal and neural foramen. C6-C7 subtle left paramedian disc herniation with questionable effect upon the left C7 nerve root.She describes the pain as a sharp stabbing pain which radiates into her left upper extremity with numbness and pins and needles sensation. She had a course of physical therapy which aggravated her pain. She is doing a home exercise program with persistent pain. She is also complaining of low back pain radiating into left lower extremity. She has no history of bladder or bowel incontinence. Alec Soares MD [address] [facility] , [address], [place], [address], [facility] - Pain Management 03/15/2017 14:24:28 04/13/2017 text/html She is here for a trial of cervical epidural steroid injection under fluoroscopic guidance. Alec Soares MD [address] , [address], [place], [address], [facility] - Pain Management 04/22/2017 11:52:52 06/23/2017 text/html She is here for a follow up after a cervical epidural steroid injection under fluoroscopic guidance. She reports 90% pain relief which is ongoing. She has occasional pain when she feels stressed. She states her activity level is up and she is able to do things around the house. She has no history of bladder or bowel incontinence.She states she had the flu and had generalized body pains and is recovered now. Alec Soares MD [address] , [address], [place], [address], [facility] - Pain Management 07/05/2017 10:56:22 OBGyn Episode No OBEpisode recorded.
== END 2024-04-05 15:31 | disposition home or self-care (01) ==
LOC: HO.HMGCX 15:30
PROVIDERS: PCP Internal Medicine; Visit Provider Internal Medicine
DX: R31.29 Other microscopic hematuria (principal)
CPT/HCPCS: 76775

== ENCOUNTER 2024-11-29 16:23 | Outpatient (REF) | payer MEDICAID, SELFPAY ==
--- OUTSIDE RECORDS SUMMARY | 2024-11-29 16:39 | XMS_ITS | Clinical Summary ---
Author Organization [facility] Address [address] [facility] [address] [place] [address] Phone Care Team Providers Care Chemical Dependency Attendant Name Role Phone Pcp, Unknown Primary Care Provider Unavailabl e Allergies Active Allergy Reactions Criticality Noted Date Comments Aspirin 04/16/2023 Ibuprofen 04/16/2023 Medications diphenhydramine -lidocaine-alum -mag-simethicon e (MAGIC MOUTHWASH-BLM) [phone] mg/30mL suspension Swish and swallow 10 mL 4 (four) times a day as needed. 178 mL 1 04/17/2023 Active FLUoxetine (PROZAC) 10 MG capsule Take 1 capsule by mouth every morning. 04/06/2023 Active LORazepam (ATIVAN) 0.5 MG tablet Take 1 tablet by mouth every morning. 04/06/2023 Active lansoprazole (PREVACID) 15 MG capsule Take 15 mg by mouth daily. Active Social History Tobacco Use Types Packs/Day Years Used Date Smoking Tobacco: Never Assessed Education Answer Date Recorded Are you interested in more education? Not on hira e 04/16/2023 Are you concerned about learning? Not on file 04/16/2023 No 04/16/2023 No 04/16/2023 Digital Access Answer Date Recorded No 04/16/2023 No 04/16/2023 Reliable internet access at home? Not on file 04/16/2023 Device with a working camera? Not on file Intimate Partner Violence Answer Date R ecorded Are you denied basic needs s uch as food, clothing, or medical care? No 04/16/2023 In the past 12 months have y ou been in a relationship with a person who hurts, threatens, or tries to control you? No 04/16/2023 Are you denied basic needs s uch as food, clothing, or medical care? No 04/16/2023 In the past 12 months have y ou been in a relationship with a person who hurts, threatens, or tries to control you? No 04/16/2023 Comments Unknown Sex and Gender Information Value Date Recorded Sex Assigned at Not on file Legal Sex Female 5:10 PM EST Gender Identity Not on file Sexual Orientation Not on file Last Filed Vital Signs Vital Sign Reading Time Taken Comments Blood Pressure 105/69 04/17/2023 3:00 AM EST Pulse 77 04/17/2023 3:00 AM EST Temperature 36.9 C (98.4 F) 04/16/2023 8:07 PM EST Respiratory Rate 13 04/17/2023 3:00 AM EST Oxygen Saturation 97% 04/17/2023 3:00 AM EST Inhaled Oxygen Concentration - - Weight 72.6 kg (160 lb) 04/16/2023 6:01 PM EST Height 149.9 cm (4' 11 ) 04/16/2023 6:01 PM EST Body Mass Index 32.32 04/16/2023 6:01 PM EST Plan of Treatment Health Maintenance Due Date Last Done Comments LIPID PANEL 1960 DEPRESSION SCREENING 1972 SMOKING Hx and SMOKELESS TOB ACCO SCREENING 1973 HEPATITIS C SCREENING 1978 HIV ONE-TIME SCREENING (18-6 5 YEARS) 1978 PAP SMEAR 1981 MAMMOGRAM 2000 COLOGUARD 2005 COLONOSCOPY 2005 COLORECTAL CANCER SCREENING 2005 FIT TEST 2005 FOBT 2005 SIGMOIDOSCOPY 2005 VIRTUAL COLONOSCOPY 2005 PNEUMOCOCCAL VACCINES (50+ y ears) (1 of 1 - PCV) 2010 ZOSTER VACCINES (1 of 2) 2010 COVID-19 VACCINE ( - 2023-2 5 season) 2024 Adult Td,Tdap Booster 12/09/2025 12/10/2015 SCREENING FOR DIABETES 04/16/2026 04/16/2023 RSV VACCINE (1 - 1-dose 75+ series) 12/27/2035 HEPATITIS A VACCINES Aged Out No long er eligible based on patient's age to complete this topic HIB VACCINES Aged Out No longer eligi ble based on patient's age to complete this topic MENINGOCOCCAL VACCINES (ACWY) Aged Out No longer eligible based on patient's age to complete this topic MENINGOCOCCAL VACCINES (B) Aged Out N o longer eligible based on patient's age to complete this topic Medical Devices Not on file Insurance [address] [place] [id number] [facility] [employer] [address] [place] [phone] [facility] [employer] [employer] [address] [place] [id number] [facility] [employer] [address] [place] [phone] [facility] [employer] [employer] [address] [place] [id number] [facility] [employer] [address] [place] [id number] [facility] [employer] Care Teams Chemical Dependency Attendant Relationship Specialty Start Date End Date Pcp, Unknown PCP - General 04/16/23 Additional Source Comments The information contained in this document represents components of the legal health record. It is not the complete legal health record.[facility]
--- OUTSIDE RECORDS SUMMARY | 2024-11-29 16:39 | XMS_ITS | Clinical Summary ---
Author Organization [facility] ity Address [address] [place] [address] Care Team Providers Care Sql Server Dba Developer Name Role Phone Unavailable Primary Care Provider Unavailabl e Social History Tobacco Use Types Packs/Day Years Used Date Smoking Tobacco: Never Assessed Comments Unknown Sex and Gender Information Value Date Recorded Sex Assigned at Not on file Legal Sex Female 2:27 AM EST Gender Identity Not on file Sexual Orientation Not on file Plan of Treatment Health Maintenance Due Date Last Done Comments Breast Cancer Screening 1960 DTaP,Tdap,and Td Vaccines (1 - Tdap) 12/27/1979 Cervical Cancer Screening: P ap Smear 1981 Pneumococcal Vaccine: 50+ Ye ars (1 of 1 - PCV) 2010 Zoster Vaccines (1 of 2) 2010 Colorectal Cancer Screening: Colonoscopy 06/01/2023 HIV Screening 06/01/2023 Hepatitis C Screening 06/01/2023 Social Influencers of Health Screening 06/01/2023 COVID-19 Vaccine (1 - 2023-2 5 season) 2024 Depression Screening 05/03/2024 Influenza Vaccine (#1) 2025 RSV Immunization Adult Patie nts (1 - 1-dose 75+ series) 12/27/2035 HIB Vaccines Aged Out No longer eligi ble based on patient's age to complete this topic HPV Vaccines Aged Out No longer eligi ble based on patient's age to complete this topic Hepatitis A Vaccines Aged Out No long er eligible based on patient's age to complete this topic Hepatitis B Vaccines Aged Out No long er eligible based on patient's age to complete this topic IPV Vaccines Aged Out No longer eligi ble based on patient's age to complete this topic MMR Vaccines Aged Out No longer eligi ble based on patient's age to complete this topic Meningococcal ACWY Vaccine Aged Out N o longer eligible based on patient's age to complete this topic Meningococcal B Vaccine Aged Out No l onger eligible based on patient's age to complete this topic RSV Immunization Patients Un jeronimo 20 months Aged Out No longer eligible b ased on patient's age to complete this topic Varicella Vaccines Aged Out No longer eligible based on patient's age to complete this topic
== END 2024-11-29 16:24 | disposition home or self-care (01) ==
LOC: HO.CHCLNP 16:23
PROVIDERS: Visit Provider Internal Medicine
DX: L72.0 Epidermal cyst (principal)
CPT/HCPCS: 87070; 87073; 87205